=== PATIENT | male | born 1935 ===

== ENCOUNTER 2023-05-17 15:48 | Inpatient (IN) | payer MEDICARE, OTHER ==
[~2023-05-17] VITALS: Ht 177.8 cm; Wt 85.4 kg
[2023-05-17] MEDS ORDERED: diphenhydrAMINE 25 MG TABLET PO PRN (16:30)
[2023-05-17] MEDS ORDERED: ONDANSETRON INJECTION 4 MG/2 ML (SDV) IV PRN (16:30)
[2023-05-17] MEDS ORDERED: MELATONIN 3 MG TABLET PO PRN (16:30)
[2023-05-17] MEDS ORDERED: BISACODYL 10 MG SUPPOSITORY PR PRN (16:30)
[2023-05-17] MEDS ORDERED: HYDROmorphone INJECTION 2 MG/ML VIAL IV PRN (16:30)
[2023-05-17] MEDS ORDERED: ANTACID SUSPENSION 30 ML UDC PO PRN (16:30)
[2023-05-17] MEDS ORDERED: MILK OF MAGNESIA 400 MG/5 ML 30 ML UDC PO PRN (16:30)
[2023-05-17] MEDS ORDERED: diphenhydrAMINE INJ 50 MG/ML VIAL IVP PRN (16:30)
[2023-05-17] MEDS ORDERED: LACTULOSE SYRUP 10GM/15ML 30ML UDC PO PRN (16:30)
[2023-05-17] MEDS ORDERED: NS IV 500 ML 500 ML IV PRN (16:30)
[2023-05-17] MEDS ORDERED: ONDANSETRON 4 MG ORAL DISSOLVE TABLET PO PRN (16:30)
[2023-05-17] MEDS ORDERED: CALCIUM CARBONATE 500 MG CHEW TABLET PO PRN (16:30)
[2023-05-17] MEDS ORDERED: ACETAMINOPHEN 325 MG TABLET PO PRN (16:30)
--- OUTSIDE RECORDS SUMMARY | 2023-05-17 18:00 | XMS REPORT | Summary of Care ---
Author Author [facility] Address Unknown Phone Unavailable Care Team Providers Care Ad Clerk Name Role Phone Obie Oscar MD PCP [phone] Encounter Details Date Type Department Care Team Description 04/26/2023 1:45 PM CDT - 04/26/2023 11:59 PM CDT Hospital Encounter SEKS Pre Admission Testing [address] [phone] Lg Hammer MD [address] [place] [address] [place] [phone] Arrived Discharge Disposition: Home or Self Care Allergies No known active allergiesdocumented as of this encounter (statuses as of 04/27/2023) Medications Medication Sig Dispensed Refills Start Date End Date Status diclofenac sodium (VOLTAREN) 75 mg Tablet, Delayed Release (E.C.) 75 mg 1 time daily as needed for Pain. 0 01/01/2023 Active folic acid (FOLVITE) 1 mg tablet Take 1 Tablet by mouth daily. 0 05/16/2021 Active metoprolol tartrate (LOPRESSOR) 50 mg tablet TAKE 1 & 1/2 TABLETS BY MOUTH TWO TIMES A DAY 0 02/22/2023 Active lutein 40 mg Capsule Take 40 mg by mouth daily. 0 03/30/2021 Active acetaminophen (TYLENOL) 500 mg tablet Take 1,000 mg by mouth every 6 hours as needed for Pain. 0 08/14/2022 Active albuterol sulfate HFA 90 mcg/actuation aerosol inhaler Take 2 Puffs by inhalation. 0 10/26/2022 Active apixaban (ELIQUIS) 5 mg tablet Take 5 mg by mouth 2 times daily. 0 03/27/2023 Active umeclidinium-vilante roL (Anoro Ellipta) 62.5-25 mcg/actuation Disk with Device Take 1 Puff by inhalation daily. 0 02/22/2023 Active mupirocin (BACTROBAN) 2 % Ointment Apply with q-tip inside both sides of the nose twice a day for the seven days leading up to surgery. 22 Gram 0 04/17/2023 Active documented as of this encounter (statuses as of 04/27/2023) Active Problems No known active problems documented as of this encounter (statuses as of 04/27/2023) Social History Tobacco Use Types Packs/Day Years Used Date Smoking Tobacco: Never Smokeless Tobacco: Never Tobacco Cessation:Counseling Given: Not Answered Alcohol Use Standard Drinks/Week Comments Yes 4 (1 standard drink = 0.6 oz pur e alcohol) daily Sex and Gender Information Value Date Recorded Sex Assigned at Not on file Gender Identity Not on file Sexual Orientation Not on file documented as of this encounter Last Filed Vital Signs Vital Sign Reading Time Taken Comments Blood Pressure 98/47 04/26/2023 2:43 PM CDT Pulse 68 04/26/2023 2:43 PM CDT Temperature 36.4 C (97.5 F) 04/26/2023 2:43 PM C DT Respiratory Rate 16 04/26/2023 2:43 PM CDT Oxygen Saturation 99% 04/26/2023 2:43 PM CDT Inhaled Oxygen Concentration - - Weight 82.6 kg (182 lb) 04/26/2023 2:43 PM CDT Height 177.8 cm (5' 10") 04/26/2023 2:43 PM CDT Body Mass Index 26.11 04/26/2023 2:43 PM CDT documented in this encounter Discharge Instructions * Discharge Instructions* Jyoti Hernandez LPN - 04/26/2023 2:38 PM CDT THINGS TO REMEMBER ABOUT YOUR SURGERY ARRIVAL INSTRUCTIONS: [x] Scheduling will call with your arrival time a few days prior to surgery. [x] Enter through the Main Entrance on 05/17/23. SKIN PREP: Do not shave your surgical site at least five days before surgery. The morning and the night before surgery take a shower using antimicrobial soap (Hibiclens), after your shower dry completely, clean your surgical site with a Chloraprep swab after the evening shower, let it air dry. The morning of surgery take a shower and dry completely, clean your surgical site with the second Chloraprep swab and let it air dry. Do not wash the Chloraprep solution from your skin. Take extra precautions in caring for your skin in the time leading up to your surgery. Cuts, scrapes, biswas and broken skin near your surgical site could lead to the cancellation of your procedure. DIET/FLUID INSTRUCTIONS: [x] Nothing to eat or drink after midnight. EXCEPT TO DRINK THE ENSURE PROVIDED TO YOU AT YOUR PREADMISSION APPOINTMENT 3 HOURS PRIOR TO SURGERY TIME. (not given to diabetic patients) [x] No Alcohol 24 hours prior to surgery. FAILURE TO FOLLOW COULD MEAN CANCELLATION. ON THE DAY OF SURGERY: You will be asked to arrive 1.5-2 hours prior to your scheduled surgery time. You will change into a hospital gown and your belongings will be placed in a bag and locked in a locker, your armenta will be pinned on your hospital bed and stay with you until you are taken to your room. Once in Pre-Op, a nurse will start your IV and anesthesia will review your medical history. Prior to surgery, the surgeon will be able to answer any additional questions or concerns. You may have a visitor stay overnight in your room. Bring comfortable and loose fitting clothes or pajamas so the nursing staff can easily view your surgical site, if allowed you will be able to wear your own clothes and will be assisted with dressingif needed. Bring your own personal care items (toothbrush, toothpaste, etc.) DISCHARGE [x] Someone must be available on your day of discharge to take you home and be of assistance as needed (please arrange this prior to admission) MEDICATIONS Stop all over the counter vitamins/herbal supplements and CBD products 2 weeks prior to surgery. Stop any NSAID'S (ie: aspirin, aleve, ibuprofen, advil, diclofenac, meloxicam, etc..) 2 weeks priorto surgery. Stop Eliquis as directed by your senior planning manager. Start Mupirocin 7 days prior to surgery on 05/10/23. Tylenol is okay to take up until the night before surgery. The morning of surgery take Metoprolol with a small sip of water. CONTINUE ALL OTHER PRESCRIPTION MEDICATIONS DIRECTED UP UNTIL THE NIGHT BEFORE SURGERY. THE DAY OF SURGERY BRING: [x] Walker (no handbrakes, no seat) [x] Inhalers [x] Ileostomy supplies DO NOT BRING ANY HOME MEDICATIONS/VITAMINS OR PAIN MEDICATIONS WITH YOU ON THE DAY OF SURGERY. IF YOU HAVE QUESTIONS: Call Jyoti at [phone] from 8:00 a.m. to 5:00 p.m. Sunday through Sunday or email at [email or web address] documented in this encounter Plan of Treatment Upcoming Encounters Date Type Department Care Team Description 05/17/2023 2:30 PM CDT Hospital Encounter [facility] Main Operating Room [address] [place] [phone] Lg Hammer MD [address] [place] [phone] Avascular necrosis 05/17/2023 2:30 PM CDT - 05/17/2023 4:00 PM CDT Surgery [facility] Main Operating Room [address] [place] [phone] Lg Hammer MD [address] [place] [phone] HIP ARTHROPLASTY TOTAL ANTERIOR APPROACH - MDM, INSIGNIA Scheduled Procedures Name Priority Associated Diagnoses Date/Ti me HIP ARTHROPLASTY TOTAL ANTER IOR APPROACH Avascular necrosis 05/17/2023 2:30 PM CDT Health Maintenance Due Date Last Done Comments DTAP/TDAP/TD VACCINES (1 - Tdap) 1954 ZOSTER VACCINE (1 of 2) 1985 COVID-19 Vaccine (3 - Modern a series) 12/14/2020 10/19/2020, 09/17/2020 [place] Preventative Visit/Annual Wellness Visit 07/23/2022 INFLUENZA VACCINE (#1) 2023 2, 05/30/2021, 04/14/2020, Additional history exists PNEUMOCOCCAL VACCINE 65+ YEARS Completed 06/25/2018 , 05/01/2017 documented as of this encounter Procedures Procedure Name Priority Date/Time Associated Diagnosis Comments CBC WITH DIFFERENTIAL Routine 04/26/2023 2:10 PM CDT Fatigue, unspecified type PTT Routine 04/26/2023 2:10 PM CDT Pain of right lower extremity PROTIME-INR Routine 04/26/2023 2:10 PM CDT Pain of right lower extremity TYPE AND SCREEN Routine 04/26/2023 2:10 PM CDT Encounter for blood typing COMPREHENSIVE METABOLIC PANEL Routine 04/26/2023 2:10 PM CDT Fatigue, unspecified type documented in this encounter Results * TYPE AND SCREEN (04/26/2023 2:10 PM CDT) ABO GROUP A 04/26/2023 6:17 PM CDT [facility] [place] RH (D) TYPE Positive 04/26/2023 6:[address] [facility] [place] ANTIBODY SCREEN Negative 04/26/2023 6:[address] [facility] [place] Blood Venipuncture / Unknown 04/26/2023 2:10 PM CDT 04/26/2023 2:10 PM CDT Lg Hammer MD BLOOD BANK OR DERABLES [facility] [place] CLIA # [id number] [address] [place] [address] * (ABNORMAL) PTT (04/26/2023 2:10 PM CDT) PTT 36.7(H) 25.0 - 35.0 seconds 04/26/2023 5:[address] [facility] [place] Blood Venipuncture / Unknown 04/26/2023 2:10 PM CDT 04/26/2023 2:10 PM CDT Narrative [facility] [place] - 04/26/2023 5:55 PM CDT PTT Therapeutic range 68 - 103 sec Lg Hammer MD HEMATOLOGY OR DERABLES Performing Organization Address [facility]/ZIP Co de Phone Number [facility] [place] CLIA # [id number] [address] [place] [address] * (ABNORMAL) PROTIME-INR (04/26/2023 2:10 PM CDT) PROTIME 74.9(H) 11.8 - 14.6 Seconds 04/26/2023 5:[address] [facility] [place] INR 9.1(HH) 0.9 - 1.2 04/26/2023 5:[address] [facility] [place] Blood Venipuncture / Unknown 04/26/2023 2:10 PM CDT 04/26/2023 2:10 PM CDT Narrative [facility] [place] - 04/26/2023 5:55 PM CDT Therapeutic range: 2.0 - 3.5 Lg Hammer MD HEMATOLOGY OR DERABLES Performing Organization Address City/[facility]/ZIP Co de Phone Number [facility] [place] CLIA # [id number] [address] [place] [address] * (ABNORMAL) COMPREHENSIVE METABOLIC PANEL (04/26/2023 2:10 PM CDT) SODIUM 134(L) 136 - 145 mmol/L 04/26/2023 5:[address] [facility] [place] POTASSIUM 4.8 3.5 - 5.1 mmol/L 04/26/2023 5:[address] [facility] [place] CHLORIDE 105 98 - 107 mmol/L 04/26/2023 5:[address] [facility] [place] CO2 21(L) 22 - 29 mmol/L 04/26/2023 5:[address] [facility] [place] CALCIUM 9.0 8.8 - 10.2 mg/dL 04/26/2023 5:04 PM [facility] [place] BUN 16 8 - 23 mg/dL 04/26/2023 5:04 PM [facility] [place] CREATININE 1.15 0.67 - 1.17 mg/dL 04/26/2023 5:04 PM T [facility] [place] Comment:The GFR result is no t clinically significant on patients <18 or >70 years of age. GLUCOSE 102(H) 74 - 99 mg/dL 04/26/2023 5:04 PM [facility] [place] TOTAL PROTEIN 6.0(L) 6.4 - 8.3 g/dL 04/26/2023 5:04 PM [facility] [place] ALBUMIN 3.6(L) 4.0 - 4.9 g/dL 04/26/2023 5:04 PM [facility] [place] BILIRUBIN TOTAL 0.7 <=1.2 mg/dL 04/26/2023 5:04 PM [facility] [place] ALKALINE PHOSPHATASE 83 40 - 129 U/L 04/26/2023 5:04 PM [facility] [place] AST 19 0 - 40 U/L 04/26/2023 5:04 PM [facility] [place] ALT 16 0 - 41 U/L 04/26/2023 5:04 PM [facility] [place] GFR >60 mL/min/1.7 3 sq meter 04/26/2023 5:04 PM [facility] [place] Comment:eGFR calculated with 2020 CKD-EPI equation. Vegetarian diet, extremely high or low muscle mass, and may affect results. Cystatin C with Glomerular Filtration Rate is a suitable alternative for these patients. ANION GAP 8 4 - 13 mmol/L 04/26/2023 5:04 PM [facility] [place] Blood Venipuncture / Unknown 04/26/2023 2:10 PM CDT 04/26/2023 2:10 PM CDT Lg Hammer MD CHEMISTRY ORD ERABLES [facility] [place] CLIA # [id number] [address] [place] [address] ROSELIA Butt [id number] * (ABNORMAL) CBC WITH DIFFERENTIAL (04/26/2023 2:10 PM CDT) WBC 9.4 4.0 - 11.0 K/uL 04/26/2023 4:47 PM CDT [facility] [place] RBC 3.19(L) 4.70 - 6.00 M/uL 04/26/2023 4:47 PM CDT [facility] [place] HEMOGLOBIN 11.2(L) 13.5 - 18.0 g/dL 04/26/2023 4:47 PM CDT [facility] [place] HEMATOCRIT 34.0(L) 42.0 - 52.0 % 04/26/2023 4:47 PM CDT [facility] [place] MCV 106.6(H) 78.0 - 100.0 fL 04/26/2023 4:47 PM CDT [facility] [place] MCH 35.1(H) 27.0 - 34.0 pg 04/26/2023 4:47 PM CDT [facility] [place] MCHC 32.9 31.0 - 37.0 g/dL 04/26/2023 4:47 PM CDT [facility] [place] RDW 14.4 12.0 - 15.0 % 04/26/2023 4:47 PM CDT [facility] [place] RDW-STDEV 56.1(H) 37.1 - 48.7 fL 04/26/2023 4:47 PM CDT [facility] [place] PLATELETS 220 150 - 450 K/uL 04/26/2023 4:47 PM CDT [facility] [place] MPV 9.4 9.3 - 12.4 fL 04/26/2023 4:47 PM CDT [facility] [place] NEUTROPHILS 81(H) 31 - 76 % 04/26/2023 4:47 PM CDT [facility] [place] LYMPHOCYTES 9(L) 24 - 44 % 04/26/2023 4:47 PM CDT [facility] [place] MONOCYTES 9 2 - 11 % 04/26/2023 4:47 PM CDT [facility] [place] EOSINOPHILS 1 0 - 6 % 04/26/2023 4:47 PM CDT [facility] [place] BASOPHILS 1 0 - 2 % 04/26/2023 4:47 PM CDT [facility] [place] IMMATURE GRANULOCYTES 1 0 - 2 % 04/26/2023 4:47 PM CDT [facility] [place] NEUTROPHIL ABSOLUTE 7.56 1.80 - 7.70 K/uL 04/26/2023 4:47 PM CDT [facility] [place] LYMPHOCYTE ABSOLUTE 0.81(L) 1.00 - 4.80 K/uL 04/26/2023 4:47 PM CDT [facility] [place] MONOCYTE ABSOLUTE 0.80 0.10 - 1.30 K/uL 04/26/2023 4:47 PM CDT [facility] [place] EOSINOPHIL ABSOLUTE 0.08 0.00 - 0.70 K/uL 04/26/2023 4:47 PM CDT [facility] [place] BASOPHILS ABSOLUTE 0.06 0.00 - 0.20 K/uL 04/26/2023 4:47 PM CDT [facility] [place] IMMATURE GRANULOCYTES ABSOLUTE 0.06 0.00 - 0.10 K/uL 04/26/2023 4:47 PM CDT [facility] [place] Blood Venipuncture / Unknown 04/26/2023 2:10 PM CDT 04/26/2023 2:10 PM CDT Lg Hammer MD HEMATOLOGY OR DERABLES [facility] [place] CLIA # [id number] [facility] ROSELIA Ding [address] documented in this encounter Visit Diagnoses Diagnosis Fatigue, unspecified type Pain of right lower extremity Encounter for blood typing Avascular necrosis Aseptic necrosis of bone, site unspecified documented in this encounter Care Teams Ad Clerk Relationship Specialty Start Date End Date Obie Oscar MD [address] [place] [phone] PCP - General 11/06/16 documented as of this encounter
--- OUTSIDE RECORDS SUMMARY | 2023-05-17 18:00 | XMS REPORT | Encounter Summary ---
Author Author [facility] Organization [facility] Address Unknown Phone Unavailable Care Team Providers Care Aws Consultant Name Role Phone Milo Francis MD PCP [phone] Encounter Details Date Type Department Care Team Description 03/27/2023 Travel Social History Tobacco Use Types Packs/Day Years Used Date Smoking Tobacco: Former Smokeless Tobacco: Never Comments:Quit in 1987 Alcohol Use Standard Drinks/Week Comments Yes 0 (1 standard drink = 0.6 oz pur e alcohol) Six pack-per day Sex and Gender Information Value Date Recorded Sex Assigned at Not on file Gender Identity Not on file Sexual Orientation Not on file Job Start Date Occupation Industry Not on file Not on file Not on file documented as of this encounter Plan of Treatment Upcoming Encounters Date Type Department Care Team Description 05/22/2023 10:30 AM CDT Office Visit [facility] [address], [address] [phone] Gracy Reeves NP [address] [address] 09/25/2023 3:00 PM SHIPPING WEIGHER Office Visit [facility] [address], [address] [phone] Glo Watson APRN-LAN [address] [place] [address] documented as of this encounter Visit Diagnoses Not on filedocumented in this encounter Care Teams Aws Consultant Relationship Specialty Start Date End Date Milo Francis MD [address] [place] [address] PCP - General Family Medicine 03/27/23 documented as of this encounter
--- OUTSIDE RECORDS SUMMARY | 2023-05-17 18:00 | XMS REPORT | Summary of Care ---
Author Author [facility] Address Unknown Phone Unavailable Care Team Providers Care Retort Furnace Operator Name Role Phone Obie Oscar MD PCP [phone] Reason for Referral * CT Scan (Routine) - Closed Specialty Diagnoses / Procedures Referred By Contac t Referred To Contact Radiology Diagnoses AVN (avascular necrosis of bone) Procedures CT HIP WO CONTRAST RIGHT Lg Hammer MD [address] [place] [address] [facility] [address] [address] Referral ID Status Reason Start Date Expiration Date V isits Requested Visits Authorized [id number] Closed SEKS to Schedule 05/14/2023 06/13/2024 1 1 Reason for Visit * CT Scan (Routine) - Closed Specialty Diagnoses / Procedures Referred By Contac t Referred To Contact Radiology Diagnoses AVN (avascular necrosis of bone) Procedures CT HIP WO CONTRAST RIGHT Lg Hammer MD [address] [place] [address] [facility] [address] [address] Referral ID Status Reason Start Date Expiration Date V isits Requested Visits Authorized [id number] Closed SEKS to Schedule 05/14/2023 06/13/2024 1 1 Encounter Details Date Type Department Care Team Description 05/15/2023 2:30 PM CDT - 05/15/2023 11:59 PM CDT Hospital Encounter [facility] CT Scan [address] [place] [phone] Lg Hammer MD [address] [place] [phone] Arrived Discharge Disposition: Home or Self Care Allergies No known active allergiesdocumented as of this encounter (statuses as of 05/16/2023) Medications Medication Sig Dispensed Refills Start Date [...] as of this encounter (statuses as of 05/16/2023) Active Problems No known active problems documented as of this encounter (statuses as of 05/16/2023) Social History Tobacco Use Types Packs/Day Years Used Date Smoking Tobacco: Never Smokeless Tobacco: Never Alcohol Use Standard Drinks/Week Comments Yes 4 (1 standard drink = 0.6 oz pur e alcohol) daily Sex and Gender Information Value Date Recorded Sex Assigned at Not on file Gender Identity Not on file Sexual Orientation Not on file documented as of this encounter Plan of Treatment Upcoming Encounters Date Type Department Care Team Description 05/31/2023 9:30 AM PSYCH RN Office Visit [facility] [place] [address] [place] [address] [address] [place] [phone] Pending Results Name Type Priority Associated Diagnoses Date /Time CT HIP WO CONTRAST RIGHT Imaging Routine AVN (avascular necrosis of bone) 05/15/2023 3:20 PM CDT Scheduled Orders Name Type Priority Associated Diagnoses Orde r Schedule CT HIP WO CONTRAST RIGHT Imaging Routine AVN (avascular necrosis of bone) Added to HDF configuration to grandchildren will have ORD item [id number] populate with time. for 1 Occurrences starting 05/15/2023 until 05/15/2023 Scheduled Procedures Name Priority Associated Diagnoses Date/Ti me HIP ARTHROPLASTY TOTAL ANTER IOR APPROACH Avascular necrosis 05/16/2023 8:00 AM CDT Health Maintenance Due Date Last Done Comments DTAP/TDAP/TD VACCINES (1 - Tdap) 1954 ZOSTER VACCINE (1 of 2) 1985 COVID-19 Vaccine (3 - Modern a series) 12/14/2020 10/19/2020, 09/17/2020 [place] Preventative Visit/Annual Wellness Visit 07/23/2022 PNEUMOCOCCAL VACCINE 65+ YEARS Completed 06/25/2018 , 05/01/2017 INFLUENZA VACCINE Completed 04/27/2023, , 05/30/2021, Additional history exists documented as of this encounter Visit Diagnoses Diagnosis AVN (avascular necrosis of bone) Aseptic necrosis of bone, site unspecified documented in this encounter Care Teams Retort Furnace Operator Relationship Specialty Start Date End Date Obie Oscar MD [address] [place] [phone] PCP - General 11/06/16 documented as of this encounter
--- OUTSIDE RECORDS SUMMARY | 2023-05-17 18:00 | XMS REPORT | Encounter Summary ---
Author Author [employer] Organization [facility] Address Unknown Phone Unavailable Care Team Providers Care Lead Clinical Research Coordinator Name Role Phone Milo Francis MD PCP [phone] Reason for Visit * Cardiac Procedures (Routine) - Closed Specialty Diagnoses / Procedures Referred By Contac t Referred To Contact Cardiology Diagnoses Carotid artery disease, unspecified laterality, unspecified type (HCC) Procedures Ultrasound Doppler Carotid Bilateral Rod Bueno MD [address] [place] [address] [facility] [address] [place] [phone] Referral ID Status Reason Start Date Expiration Date Visits Re quested Visits Authorized [id number] Closed 03/27/2023 03/21/2024 1 1 Encounter Details Date Type Department Care Team Description 03/29/2023 3:00 PM CDT Ancillary Procedure [facility] Non-Invasive Cardiology [address] [place] [phone] Carotid artery disease, unspecified laterality, unspecified type (HCC) Social History Tobacco Use Types Packs/Day Years [...] Description 05/22/2023 10:30 AM CDT Office Visit [facility] Cardiology [address], [address] [place] [phone] Gracy Reeves NP [address] [place] [address] 09/25/2023 3:00 PM CODING COMPLIANCE AUDITOR Office Visit [facility] Cardiology [address], [address] [place] [phone] Glo Watson, DATA CENTER TECHNICIAN-PIT TANNER [address] [place] [address] documented as of this encounter Procedures Procedure Name Priority Date/Time Associated Diagnosis Comments US DOPPLER CAROTID EXTRACRANIAL Routine 03/29/2023 3:35 PM CDT Carotid artery disease, unspecified laterality, unspecified type (HCC) documented in this encounter Results * Ultrasound Doppler Carotid Bilateral (03/29/2023 3:35 PM CDT) Anatomical Region Laterality Modality Ultrasound Impressions 03/31/2023 10:07 AM CDT No evidence of hemodynamically significant stenosis noted in the right or left ICA. Mild plaque noted in the right and left bulb, ECA and proximal ICA. FOLLOW-UP IMAGING RECOMMENDATION: Repeat study in 2 years Narrative 03/31/2023 10:07 AM CDT Table formatting from the original result was not included. Images from the original result were not included. Date of Exam:03/29/23 MR#: [id number] Patient: Jonathan Restrepo Referring Physician: Rod Bueno Date of : 1935 Technologist: Ermelinda Boo [facility], RVT BILATERAL CAROTID DUPLEX ULTRASOUND B-mode imaging, pulse wave Doppler, and color Doppler of the carotid arteries, vertebral arteries, and subclavian arteries INDICATION: stenosis PREVIOUS EXAM: 06-05-19 DOPPLER MEASUREMENTS RIGHT PSV cm/sec EDV cm/sec LEFT PSV cm/sec EDV cm/sec CCA Prox 121 10 CCA Prox 86 10 CCA Dist 70 6 CCA Dist 66 12 ICA Prox 48 10 ICA Prox 58 15 ICA Dist 67 12 ICA Dist 90 22 ECA 90 ECA 105 Subclavian A 205 Subclavian A 126 Vertebral A Poor vis Vertebral A 71 Vertebral Flow Poor VIS Vertebral Flow antegrade ICA/CCA Ratio 0.55 ICA/CCA Ratio 1.04 FINDINGS RIGHT: Intimal thickening noted in the right CCA. Mild plaque noted in the right bulb, ECA and proximal ICA. Antegrade flow noted in the right vertebral artery. Triphasic waveforms noted in the right subclavian artery. LEFT: Intimal thickening noted in the left CCA. Mild plaque noted in the left bulb, ECA and proximal ICA. Antegrade flow noted in the left vertebral artery. Triphasic waveforms noted in the left subclavian artery. Rod Bueno MD CV VASCULAR PROCEDUR ES documented in this encounter Visit Diagnoses Diagnosis Carotid artery disease, unspecified laterality, unspecified type (HCC) documented in this encounter Care Teams Lead Clinical Research Coordinator Relationship Specialty Start Date End Date Milo Francis MD [address] [place] [address] PCP - General Family Medicine 03/27/23 documented as of this encounter
--- OUTSIDE RECORDS SUMMARY | 2023-05-17 18:00 | XMS REPORT | Encounter Summary ---
Author Author [facility] Organization [facility] Address Unknown Phone Unavailable Care Team Providers Care Grinding Room Supervisor Name Role Phone Milo Francis MD PCP [phone] Encounter Details Date Type Department Care Team Description 03/29/2023 Travel Social History Tobacco Use Types Packs/Day [...] Description 05/22/2023 10:30 AM CDT Office Visit [facility] Cardiology [address], [address] [phone] Gracy Reeves NP [address] [address] 09/25/2023 3:00 PM OUTCOMES MANAGER Office Visit [facility] Cardiology [address], [address] [phone] Glo Watson APRN-LAN [address] [place] [address] documented as of this encounter Visit Diagnoses Not on filedocumented in this encounter Care Teams Grinding Room Supervisor Relationship Specialty Start Date End Date Milo Francis MD [address] [place] [address] PCP - General Family Medicine 03/27/23 documented as of this encounter
--- OUTSIDE RECORDS SUMMARY | 2023-05-17 18:00 | XMS REPORT | Summary of Care ---
Author Author [facility] Address Unknown Phone Unavailable Care Team Providers Care Outsole Cementer Name Role Phone Obie Oscar MD PCP [phone] Encounter Details Date Type Department Care Team Description 04/26/2023 2:02 PM CDT - 04/26/2023 11:59 PM CDT Hospital Encounter [facility] Radiology [address] [place] [phone] Lg Hammer MD [address] [place] [phone] Arrived Discharge Disposition: Home or Self [...] Description 05/17/2023 2:30 PM CDT Hospital Encounter [facility] Main Operating Room [address] [phone] gL Hammer MD [address] [place] [phone] Avascular necrosis 05/17/2023 2:30 PM CDT - 05/17/2023 4:00 PM CDT Surgery [facility] Main Operating Room [address] [phone] Lg Hammer MD [address] [place] [phone] HIP ARTHROPLASTY TOTAL ANTERIOR APPROACH - MDM, INSIGNIA Scheduled Procedures Name Priority Associated Diagnoses Date/Ti me HIP ARTHROPLASTY TOTAL ANTER IOR APPROACH Avascular necrosis 05/17/2023 2:30 PM CDT Health Maintenance Due Date Last Done Comments DTAP/TDAP/TD VACCINES (1 - Tdap) 1954 ZOSTER VACCINE (1 of 2) 1985 COVID-19 Vaccine (3 - Modern a series) 12/14/2020 10/19/2020, 09/17/2020 Medicare Advantage (MD) Preventative Visit/Annual Wellness Visit 07/23/2022 INFLUENZA VACCINE (#1) 2023 2, 05/30/2021, 04/14/2020, Additional history exists PNEUMOCOCCAL VACCINE 65+ YEARS Completed 06/25/2018 , 05/01/2017 documented as of this encounter Procedures Procedure Name Priority Date/Time Associated Diagnosis Comments XR CHEST PA AND LATERAL 2 VW Routine 04/26/2023 2:59 PM CDT Pain of right lower extremity documented in this encounter Results * XR CHEST PA AND LATERAL 2 VW (04/26/2023 2:59 PM CDT) Anatomical Region Laterality Modality Chest Computed Radiogr aphy 04/26/2023 3:2 2 PM CDT Narrative 04/26/2023 3:22 PM CDT CHEST, 2 views CLINICAL DATA: Preoperative evaluation. FINDINGS: Prominent interstitial markings diffusely, likely chronic interstitial lung disease. The heart size is normal. The mediastinum and dimitri are unremarkable. No consolidations or effusions are present. IMPRESSION: Chronic interstitial lung disease. No acute cardiopulmonary process. Electronically Signed By: Jessica North DO, Signed On: 04/26/2023 3:22 PM, [id number] Procedure Note Jessica North DO - 04/26/2023 CHEST, 2 views CLINICAL DATA: Preoperative evaluation. FINDINGS: Prominent interstitial markings diffusely, likely chronicinterstitial lung disease. The heart size is normal. The mediastinum and dimitri are unremarkable. No consolidations or effusions are present. IMPRESSION: Chronic interstitial lung disease. No acute cardiopulmonary process. Electronically Signed By: Jessica North DO, Signed On: 04/26/2023 3:22PM, [id number] Lg Hammer MD DIAGNOSTIC IM AGING ORDERABLES documented in this encounter Visit Diagnoses Diagnosis Pain of right lower extremity Avascular necrosis Aseptic necrosis of bone, site unspecified documented in this encounter Care Teams Outsole Cementer Relationship Specialty Start Date End Date Obie Oscar MD [address] [place] [phone] PCP - General 11/06/16 documented as of this encounter
--- OUTSIDE RECORDS SUMMARY | 2023-05-17 18:00 | XMS REPORT | Encounter Summary ---
Author Author [employer] Organization [employer] [facility] Address Unknown Phone Unavailable Care Team Providers Care Coping Machine Operator Name Role Phone Milo Francis MD PCP [phone] Reason for Visit * Cardiac Procedures (Routine) - Closed Specialty Diagnoses / Procedures Referred By Contac t Referred To Contact Cardiology Diagnoses Nonrheumatic aortic (valve) insufficiency Shortness of breath Procedures Transthoracic Echo (TTE) Complete TRANSTHORACIC ECHO (TTE) COMPLETE TRANSTHORACIC ECHO (TTE) COMPLETE W/ DOPPLER TRANSTHORACIC ECHO (TTE) COMPLETE W/ CONTRAST TRANSTHORACIC ECHO (TTE) COMPLETE NO DOPPLER NO COLOR Rod Bueno MD [address] [place] [address] [facility] [address] [place] [phone] Referral ID Status Reason Start Date Expiration Date Visits Re quested Visits Authorized [id number] Closed 03/27/2023 03/21/2024 1 1 Encounter Details Date Type Department Care Team Description 03/29/2023 2:00 PM CDT Ancillary Procedure [facility] Non-Invasive Cardiology [address] [place] [phone] Nonrheumatic aortic (valve) insufficiency; Shortness of breath Social History Tobacco Use Types Packs/Day Years [...] Description 05/22/2023 10:30 AM CDT Office Visit [facility] Cardiology [address], [address] [place] [phone] Gracy Reeves NP [address] [place], [place] [phone] 09/25/2023 3:00 PM ELEVATORS INSPECTOR Office Visit [facility] Cardiology [address], [address] [place] [phone] Glo Watson, CLEAN IN PLACES OPERATOR-RN OTOLARYNGOLOGY [address] [place], [place] [phone] documented as of this encounter Procedures Procedure Name Priority Date/Time Associated Diagnosis Comments TRANSTHORACIC ECHO (TTE) COMPLETE W/ DOPPLER AND COLOR Routine 03/29/2023 3:35 PM CDT Nonrheumatic aortic (valve) insufficiency Shortness of breath documented in this encounter Results * TRANSTHORACIC ECHO (TTE) COMPLETE W/ DOPPLER AND COLOR (03/29/2023 3:35 PM CDT) Anatomical Region Laterality Modality Ultrasound Narrative 03/31/2023 10:06 AM CDT Table formatting from the original result was not included. Images from the original result were not included. Name: Jonathan Restrepo Date of study: 03/29/23 Date of : 1935 Medical Record: [id number] Room Number: 2 Accession Number: [id number] Ht: 5'6 Wt: 182 BSA: 1.93 Asphalt Spreader Operator: Ermelinda Boo RD, RVT BP: 126/68 HR: 72 Ordering Physician: Rod Bueno MD Study Performed: Transthoracic Echocardiogram Indication/History: AI Procedure: Complete two dimensional transthoracic echocardiogram with spectral doppler and color flow evaluation. Study quality is technically difficult. Findings: Left ventricle: Left ventricular chamber size is normal. There is no evidence of left ventricular hypertrophy. The left ventricular function is normal. Estimated ejection fraction 55-60%. No evidence of regional wall motion abnormalities. Diastolic function is normal. Right ventricle: Right ventricular chamber size is normal. Right ventricular function is normal The right ventricular wall thickness is normal. Atria: Left atrial size is normal. Left atrial volume is normal. Right atrial size is normal. Aortic root: Aortic root is normal in size. Ascending aorta is normal in size. Aortic valve: The aortic valve is trileaflet Aortic stenosis is absent. Mild to moderate (1-2+) aortic regurgitation. No MAGGIE obtained due to poor color Doppler angles and poor patient positioning. Mitral valve: The mitral valve is structurally normal. Mitral stenosis is absent. Moderate to moderately severe (2-3+) mitral regurgitation. Tricuspid valve: Morphologically normal tricuspid valve. Tricuspid stenosis is absent. Moderate to moderately severe (2-3+) tricuspid regurgitation. Pulmonic valve: Morphologically normal pulmonic valve. Pulmonic stenosis is absent. Moderate (2+) pulmonic regurgitation. Pulmonary arterial systolic pressure: Estimated pulmonary arterial systolic pressure is 58.6 mmHg. Pulmonary artery systolic pressures are moderately increased. Inferior vena cava: The inferior vena cava is not well visualized. Mass: No intracardiac mass or thrombus is noted. Effusion: Pericardial effusion is not visualized.. Conclusions: Normal left ventricular systolic function with EF 60 %. 1-2+ aortic regurgitation 2-3+ mitral regurgitation 2-3+ tricuspid regurgitation 2+ pulmonic regurgitation Moderate pulmonary hypertension Comparison: Changes are seen compared to previous exam from 2020, valvular regurgitation has increased, and pulmonary hypertension is present Echo Doppler Echo Dimensions Male normal Female normal Results Aortic Valve: LV Diastolic Diameter Peak Velocity (m/sec) 1.18 (cm) 4.2 - 5.8 3.8 - 5.2 4.95 Peak Gradient (mmHg) 5.55 LV Systolic Diameter Mean Gradient (mmHg) 2.41 (cm) 2.5 - 4.0 2.2 - 3.5 4.30 Valve Area (cm2) IV Septal Thickness LVOT Peak Velocity (m/sec) (cm) 0.6 - 1.0 0.6 - 0.9 1.41 LVOTd (cm) 2.63 LV Posterior Wall Thickness AI EROA (cm2) (cm) 0.6 - 1.0 0.6 - 0.9 1.78 RV Max Short [place] Mitral Valve: (cm) 2.5 - 4.1 2.5 - 4.1 Peak Velocity (m/sec) 5.57 RV Wall Thickness E-Velocity (m/sec) (cm) 0.1 - 0.5 0.1 - 0.5 A-Velocity (m/sec) Left Atrium Deceleration Time (m/sec) A-P (cm) 3.0 - 4.0 2.7 - 3.8 5.76 Medial e I-S (cm) 3.0 - 5.5 3.0 - 5.5 6.64 Lateral e LA Volume Index (mL/m2) 16 - 34 16 - 34 E/e Right Atrium Peak Gradient (mmHg) I-S (cm) 3.0 - 5.5 3.0 - 5.5 Mean Gradient (mmHg) RA Area (cm2) P Time (msec) Aortic Root Valve Area (cm2) (cm) 3.1 - 3.7 2.7 - 3.3 3.61 MR PISA (cm) Ascending Aorta MR EROA (cm2) (cm) 2.6 - 3.4 2.3 - 3.1 Cardiac Output (Lpm) 4-8 4-8 Stroke Volume (mL) 60-100 60-100 Stroke Vol Index (mL/m2) >35 >35 Tricuspid Valve: LV EDV BP (mL) 62 - 150 46 - 106 Peak TR Velocity (m/sec) 3.49 LV ESV BP (mL) 21 - 61 14 - 42 Estimated RA Pressure (mmHg) LV Ejection Fraction (%) 52 - 72% 54 -74% 55-60 Peak PA Systolic Pressure (mmHg) LV Global Strain (%) TAPSE(cm) 1.98 Pulmonic Valve: TASV(m/sec) Peak Velocity (m/sec) RVSP 58.6 Acceleration Time (msec) Rod Bueno MD CV ECHO PROCEDURES documented in this encounter Visit Diagnoses Diagnosis Nonrheumatic aortic (valve) insufficiency Shortness of breath documented in this encounter Care Teams Coping Machine Operator Relationship Specialty Start Date End Date Milo Francis MD [address] [place] [address] PCP - General Family Medicine 03/27/23 documented as of this encounter
--- OUTSIDE RECORDS SUMMARY | 2023-05-17 18:00 | XMS REPORT | Encounter Summary ---
Author Author [facility] Organization [facility] Address Unknown Phone Unavailable Care Team Providers Care Ob/Gyn Doctor Name Role Phone Milo Francis MD PCP [phone] Encounter Details Date Type Department Care Team Description 04/17/2023 Travel Social History Tobacco Use Types Packs/Day [...] Description 05/22/2023 10:30 AM CDT Office Visit [facility] Cardiology [address], [address] [phone] Gracy Reeves NP [address] [address] 09/25/2023 3:00 PM BRANDING MACHINE OPERATOR Office Visit [facility] Cardiology [address], [address] [phone] Glo Watson APRN-LAN [address] [place] [address] documented as of this encounter Visit Diagnoses Not on filedocumented in this encounter Care Teams Ob/Gyn Doctor Relationship Specialty Start Date End Date Milo Francis MD [address] [place] [address] PCP - General Family Medicine 03/27/23 documented as of this encounter
--- OUTSIDE RECORDS SUMMARY | 2023-05-17 18:00 | XMS REPORT | Encounter Summary ---
Author Author [employer] Organization [employer] [facility] Address Unknown Phone Unavailable Care Team Providers Care Canopy Inspector Name Role Phone Milo Francis MD PCP [phone] Reason for Visit * Reason Comments Atrial Fibrillation Re-Ck EKG Encounter Details Date Type Department Care Team Description 04/17/2023 3:45 PM CDT Clinical Support [facility] Cardiology [address], [address] [phone] Persistent atrial fibrillation (HCC) (Primary Dx) Social History Tobacco Use Types Packs/Day Years Used Date Smoking Tobacco: Former Smokeless Tobacco: Never Tobacco Cessation:Counseling Given: Not Answered Comments:Quit in 1987 Alcohol Use Standard Drinks/Week [...] Sign Reading Time Taken Comments Blood Pressure 112/66 04/17/2023 3:57 PM CDT Pulse 83 04/17/2023 3:57 PM CDT Temperature - - Respiratory Rate 20 04/17/2023 3:57 PM CDT Oxygen Saturation 99% 04/17/2023 3:57 PM CDT Inhaled Oxygen Concentration - - Weight 82.6 kg (182 lb) 04/17/2023 3:57 PM CDT Height 177.8 cm (5' 10") 04/17/2023 3:57 PM CDT Body Mass Index 26.11 04/17/2023 3:57 PM CDT documented in this encounter Progress Notes * Cassy Dumas RN - 04/17/2023 3:45 PM CDTSummary: A fib Pt had a ekg done during this visit. Pt was still in a fib. Pt has not missed a dose of eliquis. Ptwill be set up for cardioversion at this time. Pt also asked about surgical clearance. Per [facility] clearance can be given. Pt was taught about the procedure and had no questions at this time. Orders entered at this time. Clearance sent to [phone] documented in this encounter Plan of Treatment Upcoming Encounters Date Type Department Care Team Description 05/22/2023 10:30 AM CDT Office Visit [facility] Cardiology [address], [address] [place] [phone] Gracy Reeves NP [address] [place] [address] 09/25/2023 3:00 PM ELECTRIC METER TESTER Office Visit [facility] Cardiology [address], [address] [place] [address] Glo Watson, BREN[employer] PAN TANK OPERATOR [address] [place] [address] documented as of this encounter Procedures Procedure Name Priority Date/Time Associated Diagnosis Comments ECG 12-LEAD Routine 04/19/2023 10:07 AM CDT Persistent atrial fibrillation (HCC) documented in this encounter Results * ECG 12 lead (04/19/2023 10:07 AM CDT) Narrative KELLY SNYDER ECG - 04/19/2023 10:07 AM CDT Atrial fibrillation -occasional ectopic ventricular beat -Right bundle branch block. ABNORMAL Rod Bueno MD ECG ORDERABLES TUL SNYDER ECG documented in this encounter Visit Diagnoses Diagnosis Persistent atrial fibrillation (HCC)- Primary documented in this encounter Care Teams Canopy Inspector Relationship Specialty Start Date End Date Milo Francis MD [address] [place] [address] PCP - General Family Medicine 03/27/23 documented as of this encounter
--- OUTSIDE RECORDS SUMMARY | 2023-05-17 18:00 | XMS REPORT | Clinical Summary ---
Author Author [facility] Address Unknown Phone Unavailable Care Team Providers Care Venetian Blind Installer Name Role Phone Mlio Francis MD PCP [phone] Allergies No known active allergies Medications Medication Sig Dispensed Refills Start Date End Date Status folic acid (FOLVITE) 1 mg tablet TAKE 1 TABLET(S) BY MOUTH DAILY 0 05/16/2021 Active lutein 40 mg capsule Take 40 mg by mouth daily. 0 03/30/2021 Active albuterol HFA (Ventolin HFA) 90 mcg/actuation inhaler Inhale 2 puffs. 0 10/26/2022 Active diclofenac (VOLTAREN) 75 mg EC tablet TAKE 1 TABLET BY MOUTH TWO TIMES A DAY NEEDED FOR ARTHRITIS PAIN 0 01/01/2023 Active umeclidinium-vilant Jose Ramon (Anoro Ellipta) 62.5-25 mcg/actuation blister with device Inhale 1 puff in the morning. 0 02/22/2023 Active acetaminophen (TYLENOL) 500 mg tablet Take 2 tablets (1,000 mg total) by mouth. 0 08/14/2022 Active metoprolol tartrate (LOPRESSOR) 50 mg tablet TAKE 1 & 1/2 TABLETS BY MOUTH TWO TIMES A DAY 0 02/22/2023 Active apixaban (ELIQUIS) 5 mg tabletIndications:P aroxysmal atrial fibrillation (HCC) Take 1 tablet (5 mg total) by mouth 2 (two) times per day. 180 tablet 3 03/27/2023 03/26/2024 Active Active Problems Problem Noted Date Diagnosed Date Carotid artery disease 03/27/2023 Paroxysmal atrial fibrillation 03/27/2023 Osteoarthritis 01/31/2021 Overview: Last Assessment & Plan: Noted. Premature ventricular contractions 08/07/2019 Other fatigue 04/17/2019 Claudication of both lower extremities 9 Localized edema 04/17/2019 Nonrheumatic tricuspid valve regurgitation 12/24 Class 1 obesity without seri ous comorbidity with body mass index (BMI) of 31.0 to 31.9 in adult 12/24/2017 Body mass index 33.0-33.9, adult 12/24/2017 Essential (primary) hypertension 12/24/2017 Nonrheumatic mitral valve regurgitation 12/25/19 18 Nonrheumatic aortic (valve) insufficiency 2017 Bilateral carotid artery stenosis 12/24/2017 Shortness of breath Encounters Date Type Department Care Team Description 04/26/2023 Clinic Scan Only Encounter [facility] [address] [place] [address] Blob, Scan Provider 04/17/2023 3:45 PM CDT Clinical Support [facility] Cardiology [address], [address] [place] [address] Persistent atrial fibrillation (HCC) (Primary Dx) 04/17/2023 Travel 03/29/2023 3:00 PM CDT Ancillary Procedure [facility] Non-Invasive Cardiology [address] [place] [address] Carotid artery disease, unspecified laterality, unspecified type (HCC) 03/29/2023 2:00 PM CDT Ancillary Procedure [facility] Non-Invasive Cardiology [address] [place] [address] [place] [address] Nonrheumatic aortic (valve) insufficiency; Shortness of breath 03/29/2023 Travel 03/27/2023 3:45 PM CDT Office Visit [facility] Cardiology [address], [address] [place] [address] Rod Bueno MD Paroxysmal atrial fibrillation (HCC) (Primary Dx); Shortness of breath; Essential (primary) hypertension; Carotid artery disease, unspecified laterality, unspecified type (HCC); Nonrheumatic aortic (valve) insufficiency 03/27/2023 Travel from Last 3 Months Social History Tobacco Use Types Packs/Day Years [...] file Not on file Not on file Last Filed Vital Signs Vital Sign Reading [...] Mass Index 26.11 04/17/2023 3:57 PM CDT Plan of Treatment Upcoming Encounters Date Type Department Care Team Description 05/22/2023 10:30 AM CDT Office Visit [facility] Cardiology [address], [address] [address] Gracy Reeves NP [address] [address] 09/25/2023 3:00 PM LAUNDRY HOUSEKEEPER Office Visit [facility] Cardiology [address], [place] [address] [place] [phone] Glo Watson, LEASING SALES CONSULTANT-CASEWORK SPECIALIST [address] [place] [address] Health Maintenance Due Date Last Done Comments MMR Vaccines (1 of 1 - Standard series) 1936 Varicella Vaccines (1 of 2 - 2-dose childhood series) 1936 Pneumococcal 65+ Yr (1 - PCV) 1941 Zoster Vaccines (1 of 2) 1985 RSV 60+ (1 - 1-dose 60+ series) 1995 Fall Risk Screening 2000 DTaP,Tdap,and Td Vaccines (1 - Tdap) 03/26/2015 03/25/2015 Medicare Wellness 06/27/2017 06/27/2016 Lipid Panel 06/03/2020 06/03/2015 Depression Screening 07/23/2022 COVID-19 Vaccine ( - season) 2023 05/11/2022, 10/19/2020, 09/17/2020 Influenza Vaccine Completed 04/27/2023, , 05/30/2021, Additional history exists HIB Vaccines Aged Out No longer eligi ble based on patient's age to complete this topic HPV Vaccines Aged Out No longer eligi ble based on patient's age to complete this topic Hepatitis A Vaccines Aged Out No long er eligible based on patient's age to complete this topic Hepatitis B Vaccines Aged Out No long er eligible based on patient's age to complete this topic IPV Vaccines Aged Out No longer eligi ble based on patient's age to complete this topic Meningococcal Vaccine Aged Out No deneen vasiliy eligible based on patient's age to complete this topic RSV Aged Out No longer eligi ble based on patient's age to complete this topic Procedures Procedure Name Priority Date/Time Associated Diagnosis Comments ECG 12-LEAD Routine 04/19/2023 10:07 AM CDT Persistent atrial fibrillation (HCC) US DOPPLER CAROTID EXTRACRANIAL Routine 03/29/2023 3:35 PM CDT Carotid artery disease, unspecified laterality, unspecified type (HCC) TRANSTHORACIC ECHO (TTE) COMPLETE W/ DOPPLER AND COLOR Routine 03/29/2023 3:35 PM CDT Nonrheumatic aortic (valve) insufficiency Shortness of breath ECG 12-LEAD Routine 03/28/2023 3:45 PM CDT Essential (primary) hypertension from Last 3 Months Results * ECG 12 lead (04/19/2023 10:07 AM CDT) Only the most recent of2 resultswithin the time period is included. Narrative [facility] ECG - 04/19/2023 10:07 AM CDT Atrial fibrillation -occasional ectopic ventricular beat -Right bundle branch block. ABNORMAL Rod Bueno MD ECG ORDERABLES [facility] ECG * Ultrasound Doppler Carotid Bilateral (03/29/2023 3:35 [...] were not included. Date of Exam:03/29/23 MR#: [id number] Patient: Jonathan Restrepo Referring Physician: Rod Bueno Date of : 1935 Technologist: Ermelinda Boo [facility], T BILATERAL CAROTID DUPLEX ULTRASOUND B-mode imaging, pulse [...] Rod Bueno MD CV VASCULAR PROCEDUR ES * TRANSTHORACIC ECHO (TTE) COMPLETE W/ DOPPLER AND COLOR (03/29/2023 3:35 PM CDT) Anatomical Region Laterality Modality Ultrasound Narrative 03/31/2023 10:06 AM CDT Table formatting from the original result was not included. Images from the original result were not included. Name: Jonathan Restrepo Date of study: 03/29/23 Date of : 1935 Medical Record: [id number] Room Number: 2 Accession Number: [id number] Ht: 5'6 Wt: 182 BSA: 1.93 Outbound Sales Professional: Ermelinda Boo RDCS, RVT BP: 126/68 HR: 72 Ordering Physician: [...] 0.6 - 0.9 1.78 RV Max Short [place] Mitral Valve: (cm) 2.5 - 4.1 2.5 [...] (msec) Rod Bueno MD CV ECHO PROCEDURES from Last 3 Months Care Teams Venetian Blind Installer Relationship Specialty Start Date End Date Milo Francis MD [address] [place] [address] PCP - General Family Medicine 03/27/23
--- OUTSIDE RECORDS SUMMARY | 2023-05-17 18:00 | XMS REPORT | Encounter Summary ---
Author Author [facility] Organization [facility] Address Unknown Phone Unavailable Care Team Providers Care Federal Mediator Name Role Phone Milo Francis MD PCP [phone] Reason for Referral * Cardiac Procedures (Routine) - Closed Specialty Diagnoses / Procedures Referred By Contac t Referred To Contact Cardiology Diagnoses Carotid artery disease, unspecified laterality, unspecified type (HCC) Procedures Ultrasound Doppler Carotid Bilateral Rod Bueno MD [address] [place] [address] [facility] [address] [place] [phone] Referral ID Status Reason Start Date Expiration Date Visits Re quested Visits Authorized [id number] Closed 03/27/2023 03/21/2024 1 1 * Cardiac Procedures (Routine) - Closed Specialty Diagnoses / Procedures Referred By Contac t Referred To Contact Cardiology Diagnoses Nonrheumatic aortic (valve) insufficiency Shortness of breath Procedures Transthoracic Echo (TTE) Complete TRANSTHORACIC ECHO (TTE) COMPLETE TRANSTHORACIC ECHO (TTE) COMPLETE W/ DOPPLER TRANSTHORACIC ECHO (TTE) COMPLETE W/ CONTRAST TRANSTHORACIC ECHO (TTE) COMPLETE NO DOPPLER NO COLOR Rod Bueno MD [address] [place] [address] [facility] [address] [place] [phone] Referral ID Status Reason Start Date Expiration Date Visits Re quested Visits Authorized [id number] Closed 03/27/2023 03/21/2024 1 1 Encounter Details Date Type Department Care Team Description 03/27/2023 3:45 PM CDT Office Visit [facility] Cardiology [address] , [facility] [address] [place] [address] Rod Bueno MD [address] [place] [address] Paroxysmal atrial fibrillation (HCC) (Primary Dx); Shortness of breath; Essential (primary) hypertension; Carotid artery disease, unspecified laterality, unspecified type (HCC); Nonrheumatic aortic (valve) insufficiency Social History Tobacco Use Types Packs/Day Years [...] Sign Reading Time Taken Comments Blood Pressure 114/56 03/27/2023 3:41 PM CDT Pulse 70 03/27/2023 3:41 PM CDT Temperature - - Respiratory Rate - - Oxygen Saturation - - Inhaled Oxygen Concentration - - Weight 82.6 kg (182 lb) 03/27/2023 3:41 PM CDT Height 167.6 cm (5' 6") 03/27/2023 3:41 PM CDT Body Mass Index 29.38 03/27/2023 3:41 PM CDT documented in this encounter Patient Instructions * Patient Instructions* Cassy Dumas RN - 03/27/2023 3:45 PM CDT Here is what is important to remember from today's visit. Testing that was ordered today: echo, ultrasound of your carotids Follow up apt: 1 months for a nurses visit Medications: Stop these medications- eliquis 2.5 mg Start these medications- eliquis 5 mg If you have any questions or concerns, please do not hesitate to reach out to us. You can call our office at or send me a message through [employer]. Have a great day!! BRIDGET Blair * Attachments The following attachments cannot be sent through Care Everywhere. * Aerobic Exercise (Malagasy) * Heart Healthy Diet (Malagasy) documented in this encounter Progress Notes * Rod Bueno MD - 03/27/2023 3:45 PM CDT Images from the original note were not included. [facility] Office Progress Note Patient: Jonathan Oquendo Annamariaperez PCP: Milo Francis MD Date: 1935 Date of Service: 03/27/2023 Allergies No Known Allergies Chief Complaint Hypertension History of Present Illness Ed returns for follow-up valuation. He was within the last month or so found by his PCP to be in atrial fibrillation. He is placed on Eliquis 2.5 twice daily. He does not note symptomatic palpitations but has been aware of increased exertional dyspnea. 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 He currently ambulates with a walker to take weight off of his hip. He has been seen by Dr. Orosco locally and is going to see Dr. Hammer in the near future. He is not having chest pain. 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 He had remote history of atrial fibs several years ago which she attributed to a Spiriva inhaler at that time. Cardiac Risk Factors [x] Hypertension [] Family h/o heart disease [] Sedentary Lifestyle [] Hyperlipidemia [] Prior h/o heart disease [x] Age (male 45+ female 55+) [] Tobacco Abuse [x] Obesity [] Menopausal [x] History of Tobacco Use [] Gout [] Other ASCVD [] Diabetes Mellitus [] Elevated hs CRP Past History Past Medical History: Diagnosis Date Arthritis Atrial fibrillation (HCC) COPD (chronic obstructive pulmonary disease) (HCC) History of echocardiogram Mild mitral regurgitation Moderate aortic insufficiency Moderate tricuspid regurgitation Right knee pain Sexual dysfunction Shortness of breath History reviewed. No pertinent surgical history. Social History Social History Tobacco Use Smoking status: Former Smokeless tobacco: Never Tobacco comments: Quit in 1987 Substance Use Topics Alcohol use: Yes Comment: Six pack-per day Drug use: Never Family History Family History Family history unknown: Yes Review of Systems Review of Systems Constitutional: Negative. HENT: Negative. Eyes: Negative. Cardiovascular: Positive for irregular heartbeat. Respiratory: Positive for shortness of breath. Endocrine: Negative. Hematologic/Lymphatic: Negative. Skin: Negative. Musculoskeletal: Positive for joint pain. Using a walker Gastrointestinal: Negative. Genitourinary: Negative. Neurological: Negative. Psychiatric/Behavioral: Negative. Allergic/Immunologic: Negative. All other systems reviewed and are negative. Medications Today Current Outpatient Medications: acetaminophen (TYLENOL) 500 mg tablet, Take 2 tablets (1,000 mg total) by mouth., Disp: , Rfl: albuterol HFA (Ventolin HFA) 90 mcg/actuation inhaler, Inhale 2 puffs., Disp: , Rfl: diclofenac (VOLTAREN) 75 mg EC tablet, TAKE 1 TABLET BY MOUTH TWO TIMES A DAY NEEDED FOR ARTHRITIS PAIN, Disp: , Rfl: folic acid (FOLVITE) 1 mg tablet, TAKE 1 TABLET(S) BY MOUTH DAILY, Disp: , Rfl: lutein 40 mg capsule, Take 40 mg by mouth daily., Disp: , Rfl: metoprolol tartrate (LOPRESSOR) 50 mg tablet, TAKE 1 & 1/2 TABLETS BY MOUTH TWO TIMES A DAY, Disp: , Rfl: umeclidinium-vilanteroL (Anoro Ellipta) 62.5-25 mcg/actuation blister with device, Inhale 1 puff in the morning., Disp: , Rfl: apixaban (ELIQUIS) 5 mg tablet, Take 1 tablet (5 mg total) by mouth 2 (two) times per day., Disp: 180 tablet, Rfl: 3 Physical Exam BP 114/56 (BP Location: Right arm, Patient Position: Sitting) | Pulse 70 | Ht 1.676 m (5' 6") | Wt 82.6 kg (182 lb) | BMI 29.38 kg/m Body mass index is 29.38 kg/m. Physical Exam Vitals and nursing note reviewed. Constitutional: Appearance: Normal appearance. He is normal weight. HENT: Nose: Nose normal. Mouth/Throat: Mouth: Mucous membranes are dry. Eyes: Pupils: Pupils are equal, round, and reactive to light. Cardiovascular: Rate and Rhythm: Normal rate. Rhythm irregular. Pulses: Normal pulses. Carotid pulses are 2+ on the right side and 2+ on the left side. Dorsalis pedis pulses are 2+ on the right side and 2+ on the left side. Heart sounds: Normal heart sounds. Pulmonary: Effort: Pulmonary effort is normal. Breath sounds: Normal breath sounds. Musculoskeletal: General: Normal range of motion. Cervical back: Normal range of motion. Skin: General: Skin is warm and dry. Neurological: General: No focal deficit present. Mental Status: He is alert and oriented to person, place, and time. Mental status is at baseline. Psychiatric: Mood and Affect: Mood normal. Behavior: Behavior normal. Thought Content: Thought content normal. Judgment: Judgment normal. Labs No results found for: "WBC", "HGB", "HCT", "MCV", "PLT" No results found for: "GLUCOSE", "CALCIUM", "NA", "K", "CO2", "CL", "BUN", "CREATININE", "ALT", "SMA", "PROT" Lab Results Component Value Date CHOL 140 06/03/2015 HDL 39 (L) 06/03/2015 LDLCALC 84 06/03/2015 TRIG 87 06/03/2015 CHOLHDL 3.6 06/03/2015 No results found for: "INR", "PTT" No results found for: "BNP" Does Jonathan Restrepo have known CAD? no Does Jonathan Restrepo have a diagnosis of heart failure? no. Does Jonathan Restrepo have a diagnosis of heart failure?no. Does Jonathan Restrepo currently use tobacco ? no. Is Jonathan Restrepo BMI < 18.5 or > 25? Yes, provided patient appropriate education. Does Jonathan Restrepo have a diagnosis of diabetes? Does the patient have a diagnosis of diabetes?: No Impression 1. Paroxysmal atrial fibrillation (HCC) Now persistent. - apixaban (ELIQUIS) 5 mg tablet; Take 1 tablet (5 mg total) by mouth 2 (two) times per day. Dispense: 180 tablet; Refill: 3 2. Shortness of breath Possibly related to above. Does have moderate COPD. - Transthoracic Echo (TTE) Complete; Future 3. Essential (primary) hypertension Normotensive on current meds - ECG 12 lead; Future - ECG 12 lead 4. Carotid artery disease, unspecified laterality, unspecified type (HCC) Overdue for reevaluation - Ultrasound Doppler Carotid Bilateral; Future 5. Nonrheumatic aortic (valve) insufficiency For reevaluation - Transthoracic Echo (TTE) Complete; Future Plan 1. Eliquis is increased to 5 twice daily which should be therapeutic dose for this patient. 2. Office follow-up in 3 weeks with EKG. If atrial fibrillation still present, patient will be scheduled for cardioversion after he has been on uninterrupted therapeutic Eliquis dose for at least 30 days. 3. Echocardiogram 4. Carotid Doppler I, Rod Bueno M.D. personally performed the service described in this documentation; it is accurate and complete. Scribed by Cassy Dumas RN and electronically signed by Rod Bueno M.D. Electronically signed by: Rod Bueno M.D. 03/27/2023 4:13 PM documented in this encounter Plan of Treatment Upcoming Encounters Date Type Department Care Team Description 05/22/2023 10:30 AM CDT Office Visit [facility] Cardiology [address], [place] [address] [place] [phone] Gracy Reeves NP [address] [place] [address] [place] [address] 09/25/2023 3:00 PM POWER CLEANER OPERATOR Office Visit [facility] Cardiology [address], [place] [address] [place] [phone] Glo Watson APRN-GRAIN SHIPPER [address] [place] [address] documented as of this encounter Procedures Procedure Name Priority Date/Time Associated Diagnosis Comments ECG 12-LEAD Routine 03/28/2023 3:45 PM CDT Essential (primary) hypertension LAST EJECTION FRACTION? Routine 11/30/2020 10:24 AM CDT documented in this encounter Results * Ultrasound [...] were not included. Date of Exam:03/29/23 MR#: [id number] Patient: Jonathan Restrepo Referring Physician: Rod Bueno Date of : 1935 Technologist: Ermelinda Boo RD, RVT BILATERAL CAROTID DUPLEX ULTRASOUND B-mode imaging, [...] 03/29/23 Date of : 1935 Medical Record: [id number] Room Number: 2 Accession Number: [id number] Ht: 5'6 Wt: 182 BSA: 1.93 Environmental Monitoring Specialist: Ermelinda Boo RDCS, RVT BP: 126/68 HR: [...] 0.6 - 0.9 1.78 RV Max Short [place] Mitral Valve: (cm) 2.5 - 4.1 2.5 [...] (msec) Rod Bueno MD CV ECHO PROCEDURES * ECG 12 lead (03/28/2023 3:45 PM CDT) Narrative [facility] ECG - 03/28/2023 3:45 PM CDT Atrial fibrillation -frequent ectopic ventricular beats # VECs = 2 Low voltage in limb leads. -Incomplete right bundle branch block and left axis -anterior fascicular block. ABNORMAL Rod Bueno MD ECG ORDERABLES [facility] ECG * Last Ejection Fraction? (11/30/2020 10:24 AM CDT) EF 55 % Anatomical Region Laterality Modality Other Historical Provider CORE MEASURES ORD ERABLES documented in this encounter Visit Diagnoses Diagnosis Paroxysmal atrial fibrillation (HCC)- Primary Shortness of breath Essential (primary) hypertension Carotid artery disease, unspecified laterality, unspecified type (HCC) Nonrheumatic aortic (valve) insufficiency Nonrheumatic aortic (valve) insufficiency Shortness of breath Carotid artery disease, unspecified laterality, unspecified type (HCC) documented in this encounter Care Teams Federal Mediator Relationship Specialty Start Date End Date Milo Francis MD [address] [place] [address] PCP - General Family Medicine 03/27/23 documented as of this encounter
--- OUTSIDE RECORDS SUMMARY | 2023-05-17 18:00 | XMS REPORT | Encounter Summary ---
Author Author [facility] Organization [facility] Address Unknown Phone Unavailable Care Team Providers Care Tool Adjuster Name Role Phone Milo Francis MD PCP [phone] Encounter Details Date Type Department Care Team Description 04/26/2023 Clinic Scan Only Encounter [facility] Records [address] [place] [phone] Blob, Scan Provider Social History Tobacco Use Types Packs/Day Years [...] 05/22/2023 10:30 AM CDT Office Visit [facility] Cardiology [address], [address] [phone] Gracy Reeves NP [address] [address] 09/25/2023 3:00 PM PHYSICIAN OBSTETRICIAN Office Visit [facility] Cardiology [address], [address] [phone] Glo Watson, CLERICAL CLERK-GEOSCIENCES ASSOCIATE PROFESSOR [address] [place] [address] documented as of this encounter Visit Diagnoses Not on filedocumented in this encounter Care Teams Tool Adjuster Relationship Specialty Start Date End Date Milo Francis MD [address] [place] [address] PCP - General Family Medicine 03/27/23 documented as of this encounter
[2023-05-17] MEDS: NS IV 1000 ML 1,000 ML IV SCH (18:23)
--- NOTE | 2023-05-17 18:54 | Tele-ICU Progress Note ---
Subjective Date Seen by a Provider: May 17, 2023 Time Seen by a Provider: 18:52 Subjective/Events-last exam (Tele-ICU Physician , consultation as per request of PCP Service provided via interactive audio and video telecommunications E-CARE system to a patient admitted to ICU bed in [facility]. Available chart/ vitals / labs / Images reviewed H&P is from ER notes Patient's information available about PMH, Shx, Fhx allergy reviewed inEMR. ROS as per chart and RN report Now in ICU, hemodynamically stable Video assessment done using teleICU camera, rest of exam as per RN Discussed with RN. Hospital course: transfer from other hospital , no chart avalable yet A/P A fib RVR - cards consulted - rate controlled now , no CP no SOB - not hypoxic -ECHO ordered - AC - eliquis s/p hip replacement Lines : , (Central Line Necessity Reviewed) Griffith: OG: Nutrition: Analgesia: Anxiety/ delirium VTE Prophylaxis: eliquis Stress Ulcer Prophylaxis: Plans in collaboration with bedside consultants and IM MDs. Discussed with RN to reach out if any questions or concerns A total of 4 minutes of critical care time was devoted to this patient today, required to treat and/or prevent further deterioration of critical care condition ( as above ) . I am remotely monitoring this patient from another state. I am unable to do the bedside exam, and history/physical and pertinent information is taken from other notes in the computer and bedside staff. . Sepsis Event Evaluation Height, Weight, BMI Height: '" Weight: lbs. oz. kg; 27.04 BMI Method: Exam Exam Patient acknowledged, consented, and participated in this virtual visit which was conducted using real time audio/video Vital Signs Date Time Temp Pulse Resp B/P (MAP) Pulse Ox O2 Delivery O2 Flow Rate FiO2 05/17/23 18:08 Room Air 05/17/23 18:02 67 05/17/23 18:00 67 28 93 Room Air 05/17/23 17:55 36.7 20 114/57 (76) 92 Room Air Height & Weight Height: '" Weight: lbs. oz. kg; 27.04 BMI Method: General Appearance: Other Assessment/Plan Assessment/Plan 1 THALIA OLSEN MD May 17, 2023 18:54
[2023-05-17 19:16] LABS: ALBUMIN 2.7 GM/DL (3.2-4.5); POTASSIUM 3.9 MMOL/L (3.6-5.0)
[2023-05-17 19:18] LABS: CALCIUM 7.8 MG/DL (8.5-10.1)
[2023-05-17 19:19] LABS: TOTAL PROTEIN 5.2 GM/DL (6.4-8.2)
[2023-05-17 19:21] LABS: BILIRUBIN,TOTAL 0.5 MG/DL (0.1-1.0)
[2023-05-17 19:23] LABS: CREATININE SERUM 0.81 MG/DL (0.60-1.30)
[2023-05-17 19:26] LABS: BASOPHILS % (AUTO) 0 % (0-10); EOSINOPHILS % (AUTO) 0 % (0-10); HEMATOCRIT 30 % (40-54); HEMOGLOBIN 10.2 g/dL (13.3-17.7); LYMPHOCYTES # (AUTO) 0.3 10^3/uL (1.0-4.0); LYMPHOCYTES % (AUTO) 1 % (12-44); MEAN CORPUSCULAR HEMOGLOBIN 35 pg (25-34); MEAN CORPUSCULAR HGB CONC 34 g/dL (32-36); MEAN CORPUSCULAR VOLUME 102 fL (80-99); MEAN PLATELET VOLUME 9.1 fL (9.0-12.2); MONOCYTES # (AUTO) 0.6 10^3/uL (0.0-1.0); MONOCYTES % (AUTO) 3 % (0-12); NEUTROPHILS # (AUTO) 20.8 10^3/uL (1.8-7.8); NEUTROPHILS % (AUTO) 95 % (42-75); PLATELET COUNT 260 10^3/uL (130-400); WHITE BLOOD COUNT 21.9 10^3/uL (4.3-11.0)
[2023-05-17 20:31] LABS: BAND NEUTROPHILS 1 %; BURR CELLS SLIGHT; MONOCYTES % (MANUAL) 1 %; NEUTROPHILS % (MANUAL) 98 %; PLATELET ESTIMATE ADEQUATE; POIKILOCYTOSIS SLIGHT
[2023-05-17] MEDS: APIXABAN 2.5 MG TABLET PO SCH (20:48)
[2023-05-17] MEDS: dilTIAZem 30 MG TABLET PO SCH (20:48)
[2023-05-17] MEDS: TAMSULOSIN 0.4 MG (FLOMAX) CAP PO SCH (20:48)
[2023-05-17] MEDS: BETHANECHOL 25 MG TABLET PO SCH (20:48)
[2023-05-17] MEDS: DOCUSATE SODIUM 100 MG CAPSULE PO SCH (20:49)
[2023-05-17] MEDS: SENNOSIDES 8.6 MG TABLET PO SCH (20:49)
[2023-05-17] MEDS: oxyCODONE IMMEDIATE RELEASE 5 MG TABLET PO PRN (20:54)
[2023-05-18] MEDS: dilTIAZem 30 MG TABLET PO SCH ×5 (02:01→23:11)
[2023-05-18] MEDS: NS IV 1000 ML 1,000 ML IV SCH (02:01)
[2023-05-18] MEDS: oxyCODONE IMMEDIATE RELEASE 5 MG TABLET PO PRN ×2 (05:00→16:39)
[2023-05-18 05:09] LABS: BASOPHILS % (AUTO) 0 % (0-10); EOSINOPHILS % (AUTO) 0 % (0-10); HEMATOCRIT 27 % (40-54); LYMPHOCYTES # (AUTO) 0.5 10^3/uL (1.0-4.0); LYMPHOCYTES % (AUTO) 3 % (12-44); MEAN CORPUSCULAR HEMOGLOBIN 34 pg (25-34); MEAN CORPUSCULAR HGB CONC 34 g/dL (32-36); MEAN CORPUSCULAR VOLUME 101 fL (80-99); MEAN PLATELET VOLUME 9.2 fL (9.0-12.2); MONOCYTES # (AUTO) 1.2 10^3/uL (0.0-1.0); MONOCYTES % (AUTO) 8 % (0-12); NEUTROPHILS # (AUTO) 14.3 10^3/uL (1.8-7.8); NEUTROPHILS % (AUTO) 89 % (42-75); PLATELET COUNT 214 10^3/uL (130-400); WHITE BLOOD COUNT 16.1 10^3/uL (4.3-11.0)
[2023-05-18 05:32] LABS: ALBUMIN 2.4 GM/DL (3.2-4.5); BILIRUBIN,TOTAL 0.5 MG/DL (0.1-1.0); CALCIUM 7.6 MG/DL (8.5-10.1); CREATININE SERUM 0.76 MG/DL (0.60-1.30); MAGNESIUM 1.4 MG/DL (1.6-2.4); PHOSPHORUS 2.5 MG/DL (2.3-4.7); POTASSIUM 3.9 MMOL/L (3.6-5.0); TOTAL PROTEIN 4.4 GM/DL (6.4-8.2)
[2023-05-18] MEDS ORDERED: MAGNESIUM 1 GM/100 ML IVPB 100 ML IV SCH (06:00)
[2023-05-18] MEDS ORDERED: POTASSIUM CL 10MEQ/50ML IVPB 50 ML IV SCH (06:00)
[2023-05-18] MEDS ORDERED: POTASSIUM CHLORIDE 20 MEQ TABLET PO SCH (06:00)
[2023-05-18] MEDS: BETHANECHOL 25 MG TABLET PO SCH ×4 (06:23→19:43)
[2023-05-18] MEDS: MAGNESIUM 1 GM/100 ML IVPB 100 ML IV SCH ×3 (06:23→10:45)
[2023-05-18 06:39] LABS: BACTERIA,URINE FEW /HPF; BILIRUBIN,URINE NEGATIVE (NEGATIVE); CLARITY,URINE CLEAR; COLOR,URINE ORANGE; GLUCOSE, URINE (UA) TRACE (NEGATIVE); KETONES,URINE NEGATIVE (NEGATIVE); LEUKOCYTE ESTERASE ,URINE TRACE (NEGATIVE); NITRITE,URINE POSITIVE (NEGATIVE); PROTEIN,URINE 1+ (NEGATIVE)
--- NOTE | 2023-05-18 08:28 | Progress Note ---
Progress Note Patient ID: Jonathan Restrepo is a 87 y.o. male. Assessment/Plan: Diagnoses and all orders for this visit: Need for influenza vaccination - Flu vaccine 65yo and older, adjuvanted IM Elevated INR Abnormal test results, could be related to combination of Eliquis and diclofena c, recommend to discontinue Clofenax, will repeat INR, might need additional INR testing next week. - PT/INR - Partial Thromboplastin Time Pain of right hip Chronic. Active. Managed by Ortho, surgery scheduled for end of this month. Recommend against diclofenac since patient is on Eliquis, continue Tylenol as baseline therapy for pain. We will have tramadol available as needed if he gets severe pain. Acute Pain control (Initial Rx of 7 days or less ): The patient currently has acute episode of pain which will require Class II Opioid treatment(or other opioid treatment). Current and Past medical history was obtained and reviewed in context of this evaluation, including the experience of the patient with non opioid medication and non pharmacological pain-management approaches and substance abuse history. Examination performed as documented in chart. Care was taken to develop a treatment plan, focused on determining the cause of the pain of the patient. [place] Prescription Monitoring Program([employer]) data was accessed and reviewed and found to be appropriate in regard to current pain management plan. Initial prescription was chosen to be the lowest effective dose of immediate release opioid drug for patient's condition, and quantity of this initial prescription is limited to the amount which would be needed for no more than 7 days of therapy. (If patient under 18 years old or , a written Patient- Provider/Pain Management Agreement is entered into at this time as well, to be signed by patient and provider and scanned into chart.) Risks of prescribed opioid medications were discussed with the patient or parent/guardian, including but not limited to: 1. The risks of addiction and overdose associated with opioid drugs and the dangers of taking opioid drugs with alcohol, benzodiazepines and other central nervous system depressants; 2. The reasons why the prescription is necessary; 3. Alternative treatments that may be available; and 4. Risks associated with the use of the drugs being prescribed, specifically that opioids are highly addictive, even when taken as prescribed, that there is a risk of developing a physical or psychological dependence on the controlled dangerous substance, and that the risks of taking more opioids than prescribed or mixing sedatives, benzodiazepines or alcohol with opioids can result in fatal respiratory depression. The patient or the parent or guardian of the patient, as applicable, has verbalized understanding of the risks of developing a physical or psychological dependence on the controlled dangerous substance and alternative treatments that may be available. Educational material has been provided as appropriate. Link to free mail service for Naloxone patient use: https://[email or web address].org/overdose/ Benign essential hypertension Chronic. Stable. Continue metoprolol, follow-up in 2 months and as needed. Chronic atrial fibrillation Chronic. Stable. Rate controlled, patient scheduled to have ablation with surgery next week. Continue metoprolol, Eliquis again discussed discontinuing diclofenac. Follow-up in 6 weeks and as needed. Ileostomy status Chronic. Stable. Ileostomy present. Other orders - mupirocin (Bactroban) 2 % ointment; Apply with q-tip inside both sides of the nose twice a day for the seven days leading up to surgery. - traMADol (Ultram) 50 MG tablet; Take 1 tablet (50 mg) by mouth every 6 (six) hours as needed for pain for up to 7 days. Subjective: Chief Complaint Patient presents with ? Follow-up Wants to talk about his high INS from pre-op yesterday and compared to previous labs Patient is here for hypertension, A-fib, right hip pain, elevated INR. Patient has surgery planned for right hip, had preop labs, that showed significant elevation of INR. Patient has A-fib, on Eliquis, been taking diclofenac for hip pain. HPI The following portions of the patient's history were reviewed and updated as appropriate: vitals, allergies, current medications, past family history, past medical history, past social history, past surgical history, and problem list. Review of Systems Musculoskeletal: Positive for arthralgias. All other systems reviewed and are negative. Objective: Physical Exam Vitals and nursing note reviewed. Constitutional: General: He is not in acute distress. Appearance: Normal appearance. HENT: Head: Normocephalic and atraumatic. Nose: Nose normal. Mouth/Throat: Mouth: Mucous membranes are moist. Pharynx: Oropharynx is clear. Eyes: Extraocular Movements: Extraocular movements intact. Conjunctiva/sclera: Conjunctivae normal. Pupils: Pupils are equal, round, and reactive to light. Cardiovascular: Rate and Rhythm: Normal rate and regular rhythm. Heart sounds: Normal heart sounds. Pulmonary: Effort: Pulmonary effort is normal. Breath sounds: Normal breath sounds. Abdominal: General: Abdomen is flat. There is no distension. Palpations: Abdomen is soft. Tenderness: There is no abdominal tenderness. Musculoskeletal: General: Tenderness present. Cervical back: Normal range of motion. Right lower leg: No edema. Left lower leg: No edema. Comments: Right hip pain, reduced range of motion right hip, walks with a walker. Skin: General: Skin is warm and dry. Neurological: Mental Status: He is alert. Mental status is at baseline. Psychiatric: Mood and Affect: Mood normal. Behavior: Behavior normal. CARDIOLOGY HISTORY AND PHYSICAL Patient Name: Jonathan Restrepo Date of : 1935 Referring/Primary Care Provider: Milo Farncis MD Chief Complaint: Atrial fibrillation SUBJECTIVE: HISTORY OF PRESENT ILLNESS: Mr. Restrepo was found to be in atrial fibrillation by his PCP this summer. Saw him about 5 weeks ago and adjusted his Eliquis to therapeutic dose. He returns now for attempt at direct-current cardioversion. PAST MEDICAL HISTORY: Past Medical History: Diagnosis Date Allergic Arthritis COPD (chronic obstructive pulmonary disease) Elevated PSA Extensor tenosynovitis of left wrist Hypertension Osteoarthritis PAST SURGICAL HISTORY: Past Surgical History: Procedure Laterality Date CATARACT EXTRACTION W/ INTRAOCULAR LENS IMPLANT, BILATERAL 09/2011 CHOLECYSTECTOMY KNEE ARTHROPLASTY Left 10/19/2008 Dr. Hardy TRANSURETHRAL RESECTION OF PROSTATE 03/03/2010 Prsostate chips were not sent for pathology. [place] VASECTOMY FAMILY HISTORY: Family History Problem Relation Age of Onset Cataracts Mother Alcohol abuse Father Anesthesia problems Neg Hx Clotting disorder Neg Hx SOCIAL HISTORY: Social History Tobacco Use Smoking status: Former Packs/day: 1.00 Years: 40.00 Additional pack years: 0.00 Total pack years: 40.00 Types: Cigarettes Start date: 07/23/1943 Quit date: 07/23/1987 Years since quittin.7 Smokeless tobacco: Never Substance and Sexual Activity Alcohol use: Yes Alcohol/week: 42.0 standard drinks of alcohol Types: 42 Cans of beer per week Comment: 6 cans of beer/day Drug use: No Sexual activity: Defer MEDICATIONS: No outpatient medications have been marked as taking for the 05/01/23 encounter (Hospital Encounter). ALLERGIES: No Known Allergies REVIEW OF SYSTEMS: A full 13 point review of systems was completed as was negative except as noted above in HPI OBJECTIVE: VITALS: There were no vitals taken for this visit. PHYSICAL EXAM Constitutional: General appearance: No acute distress, well appearing and well nourished. Neck: Jugular veins: Normal. Thyroid: Normal, no thyromegaly. Respiratory: Respiratory effort: No increased work of breathing or signs of respiratory distress. Auscultation of lungs: Clear to auscultation. Cardiovascular: Palpation of heart: Normal PMI, no thrills. Auscultation of heart: Irregular rate and rhythm, normal S1 and S2, without murmurs. Carotid pulse: 2+ bilaterally, no bruits. Femoral pulse: 2+ bilaterally, no bruits. Popliteal pulse: 2+ bilaterally. Dorsalis Pedis pulse: 2+ bilaterally. Posterior Tibial pulse: 2+ bilaterally. Examination of extremities for edema and/or varicosities: Normal. Abdomen: Abdomen: Non tender, no masses. Liver and spleen: No hepatomegaly or splenomegaly. Musculoskeletal: Digits and nails: Normal without clubbing or cyanosis. Psychiatric: Orientation to person, place, and time: Normal. Mood and affect: Normal. LAB: Recent Lab Results Lab Units 04/26/23 1410 SODIUM mmol/L 134* POTASSIUM SERUM mmol/L 4.8 CHLORIDE SERUM mmol/L 105 CO2 mmol/L 21* BUN mg/dL 16 CREATININE mg/dL 1.15 GLUCOSE mg/dL 102* CALCIUM mg/dL 9.0 Recent Lab Results Lab Units 04/26/23 1410 WHITE BLOOD CELL COUNT K/uL 9.4 HEMOGLOBIN g/dL 11.2* HEMATOCRIT % 34.0* PLATELET COUNT K/uL 220 No results for input(s): "CPK", "TROP", "CKMB" in the last 168 hours. Lab Results Component Value Date BNP 65 01/31/2021 Recent Lab Results Lab Units 04/27/23 1402 INR 1.1 CARDIOGRAPHICS: EKG: No results found. IMAGING: No results found. ASSESSMENT AND PLAN: Patient Active Problem List Diagnosis Date Noted Primary osteoarthritis of right hip 02/28/2023 Chronic atrial fibrillation 02/22/2023 PAF (paroxysmal atrial fibrillation) 09/29/2021 Chronic pain of both shoulders 07/14/2021 COPD (chronic obstructive pulmonary disease) 01/31/2021 Osteoarthritis 01/31/2021 Joint inflammation 01/31/2021 Hyponatremia 01/31/2021 Elevated PSA 01/03/2021 Extensor tenosynovitis of left wrist 04/14/2020 Primary osteoarthritis of both hands 09/18/2019 Premature ventricular contractions 08/07/2019 Spinal meningioma 04/24/2019 Spinal stenosis of lumbar region with neurogenic claudication 04/15/2019 Chronic midline low back pain without sciatica 04/01/2019 Leg cramps 04/01/2019 Macular drusen, bilateral 07/31/2017 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 07/31/2017 Anxiety state 06/27/2017 History of colon cancer 06/27/2016 Left hydrocele 06/05/2016 Ileostomy status 04/28/2016 Abnormal heart sounds 04/28/2016 Nondependent alcohol abuse, continuous drinking behavior 04/28/2016 Atopic rhinitis 04/28/2016 Benign essential hypertension 04/28/2016 Osteoarthritis of cervical spine 04/28/2016 Cervical radiculopathy 04/28/2016 Erectile dysfunction of nonorganic origin 04/28/2016 Primary hypertriglyceridemia 04/28/2016 Former smoker 04/28/2016 Knee pain 04/28/2016 Adiposity 04/28/2016 Persistent atrial fibrillation Plan: Direct-current cardioversion AS HULL DO May 18, 2023 08:28
--- NOTE | 2023-05-18 09:25 | Diagnostic Imaging Report ---
CLINICAL INDICATION: Patient with hypoxia. EXAM: Portable chest x-ray upright view. COMPARISON: None. FINDINGS: There is cardiomegaly with no significant pulmonary vascular congestion. There are patchy airspace opacities and nodular opacities involving the periphery of both lungs with both lung bases affected the most. Slight increased lung markings are also seen. There is consolidation in the left lung base. There is no right pleural effusion. Left pleural effusion cannot be excluded given the consolidation in the left lung base. There is no pneumothorax. There are degenerative spurs involving the thoracic spine. IMPRESSION: 1: There are increased lung markings and multiple nodular and groundglass opacifications involving both lungs in the periphery and both lung bases. These findings may be related to lung infiltrates with or without chronic lung changes. Comparison to prior chest x-ray to evaluate for chronicity would better evaluate. 2: There is mild consolidation involving the left lung base. Left pleural effusion cannot be completely excluded. Dictated by: Dictated on workstation # [id number]
--- NOTE | 2023-05-18 09:26 | Occupational Therapy Eval ---
OT Evaluation-General/PLF Medical Diagnosis Admission Date May 17, 2023 at 17:56 Medical Diagnosis: a fib Onset Date: May 17, 2023 Therapy Diagnosis Therapy Diagnosis: weakness Precautions Precautions/Isolations: Standard Precautions Weight Bear Status Weight Bearing Restriction: Weight Bearing/Tolerated s/p R CARLOS WBAT this week in [place] Referral Referral Reason: Self Care, Evaluation/Treatment Medical History Pertinent Medical History: Atrial Fib, COPD, HTN Additional Medical History ileostomy Reviewed History: Yes Social History Home: Single Level Current Living Status: Spouse Entry Into Home: Stairs Without Railing ADL-Prior Level of Function SCALE: Activities may be completed with or without assistive devices. 3-Zqkndwfbcc-bzamhos completes the activity by him/herself with no assistance from a helper. 5-Set-up or Clean-up Assistance-helper sets up or cleans up; patient completes activity. [place] assists only prior to or following the activity. 4-Supervision or Touching Assistance-helper provides verbal cues and/or touching/steadying and/or contact guard assistance as patient completes activity. Assistance may be provided throughout the activity or intermittently. 3-Partial/Moderate Assistance-helper does LESS THAN HALF the effort. [place] lifts, holds or supports trunk or limbs, but provides less than half the effort. 2-Substantial/Maximal Assistance-helper does MORE THAN HALF the effort. [place] lifts or holds trunk or limbs and provides more than half the effort. 2-Aexbpkdll-cpcdau does ALL the effort. Patient does none of the effort to complete the activity. Or, the assistance of 2 or more helpers is required for the patient to complete the activity. If activity was not attempted, code reason: 7-Patient Refused. 9-Not Applicable-not attempted and the patient did not perform the activity before the current illness, exacerbation or injury. 10-Not Attempted due to Environmental Limitations-(lack of equipment, weather restraints, etc.). 88-Not Attempted due to Medical Conditions or Safety Concerns. Self Care: Independent Functional Cognition: Independent Drive Self: Yes OT Current Status Subjective Agreeable to OT Pain Numeric Pain Scale: 4 Location Body Site: Hip Mental Status/Objective Patient Orientation: Person, Place, Time, Situation Attachments: Griffith Catheter, IV (leaking and replaced), Telemetry Current Glasses/Contacts: Yes Hand Dominance: Right Upper Extremity ROM BUE ROM WFLS Upper Extremity Coordination WFLs Upper Extremity Sensation INTACT Upper Extremity Strength -4/5 grossly ADL-Treatment Eating (QC): 6 Oral Hygiene (QC): 5 Shower/Bathe Self (QC): 7 Upper Body Dressing (QC): 4 Lower Body Dressing (QC): 4 On/Off Footwear (QC): 5 Toileting Hygiene (QC): 4 Reports FWW use at home, however does not use FWW safely or correctly Education OT Patient Education: Correct positioning, Exercise program, Modified ADL techniques, Progress toward Goal/Update tx plan, Purpose of tx/functional activities, Reviewed precautions, Rehab process, Safety issues, Transfer techniques, Use of adapted equipment Teaching Recipient: Patient Response to Teaching: Verbalize Understanding, Return Demonstration OT Half-Way Goals Half-Way Goals Eating (QC): 6 Oral Hygiene (QC): 6 Toileting Hygiene (QC): 6 Shower/Bathe Self (QC): 6 Upper Body Dressing (QC): 6 Lower Body Dressing (QC): 6 On/Off Footwear (QC): 6 1=Demonstrate adherence to instructed precautions during ADL tasks. 2=Patient will verbalize/demonstrate understanding of assistive devices/modifications for ADL. 3=Patient will improve strength/tolerance for activity to enable patient to perform ADL's. OT Education/Plan Problem List/Assessment Assessment: Decreased Activ Tolerance, Decreased UE Strength, Impaired Coordination, Impaired Funct Balance, Restricted Funct UE ROM Discharge Recommendations Plan/Recommendations: Continue POC Therapy Discharge Recommendati: Post Acute OT Treatment Plan/Plan of Care Treatment,Training & Education: Yes Patient would benefit from OT for education, treatment and training to promote independence in ADL's, mobility, safety and/or upper extremity function for ADL's. Plan of Care: ADL Retraining, Functional Mobility, Group Exercise/Act as Ind, UE Funct Exercise/Act Treatment Duration: May 22, 2023 Frequency: 3 times per week (3-5 times per week) Estimated Hrs Per Day: .25 hour per day Agreement: Yes Rehab Potential: Guarded Time Start Time: 08:11 Stop Time: 08:30 DATE: May 18, 2023 Total Time Billed (hr/min): 19 Billed Treatment Time EVM 19 DAVID BOYER OT May 18, 2023 09:26
--- NOTE | 2023-05-18 09:29 | Physical Therapy Evaluation ---
PT Evaluation-General Medical Diagnosis Admission Date May 17, 2023 at 17:56 Medical Diagnosis: A-fib Onset Date: May 17, 2023 Therapy Diagnosis Therapy Diagnosis: debility/weakness Precautions Precautions/Isolations: Standard Precautions Weight Bear Status Right Lower Extremity: Right Weight Bearing/Tolerated Left Lower Extremity: Left Full Weight Bearing Referral Physician: Lauryn Reason for Referral: Evaluation/Treatment Medical History Pertinent Medical History: Atrial Fib, COPD Current History Transfer from [facility] due to A-fib (s/p right THR anterior approach) Social History Home: Single Level Current Living Status: Spouse Prior Prior Level of Function SCALE: Activities may be completed with or without assistive devices. 9-Nmyeesmwag-[id number] completes the activity by him/herself with no assistance from a helper. 5-Set-up or Clean-up Assistance-helper sets up or cleans up; patient completes activity. [place] assists only prior to or following the activity. 4-Supervision or Touching Assistance-helper provides verbal cues and/or touching/steadying and/or contact guard assistance as patient completes activity. Assistance may be provided throughout the activity or intermittently. 3-Partial/Moderate Assistance-helper does LESS THAN HALF the effort. [place] lifts, holds or supports trunk or limbs, but provides less than half the effort. 2-Substantial/Maximal Assistance-helper does MORE THAN HALF the effort. [place] lifts or holds trunk or limbs and provides more than half the effort. 9-Blocmwegd-oczvpp does ALL the effort. Patient does none of the effort to complete the activity. Or, the assistance of 2 or more helpers is required for the patient to complete the activity. If activity was not attempted, code reason: 7-Patient Refused. 9-Not Applicable-not attempted and the patient did not perform the activity before the current illness, exacerbation or injury. 10-Not Attempted due to Environmental Limitations-(lack of equipment, weather restraints, etc.). 88-Not Attempted due to Medical Conditions or Safety Concerns. Bed Mobility: 6 Transfers (B,C,W/C): 6 Gait: 6 Stairs: 6 Indoor Mobility (Ambulation): Independent Stairs: Independent Prior Devices Use: None PT Evaluation-Current Subjective Patient agrees to therapy. Denies pain at this time. Objective Patient Orientation: Normal For Age Attachments: Colostomy/Ileostomy, Griffith Catheter, IV ROM/Strength ROM Lower Extremities bilateral LE WFL Strength Lower Extremities right LE 3+/5 grossly/left LE 4/5 Integumentary/Posture Integumentary refer to nursing notes Bladder Incontinence: Griffith Cath Posture slight trunk flexed posture in stand Neuromuscular (Tone, Coordination, Reflexes) grossly intact Sensory Vision: Functional Hearing: Functional Transfers Sit to Stand (QC): 4 Gait Mode of Locomotion: Walk Anticipated Mode of Locomotion: Walk Walk 10 feet (QC): 4 Walk 50 ft with 2 Turns(QC): 4 Walk 150 ft (QC): 4 Distance: 200' Gait Assistive Device: FWW Comments/Gait Description trunk and knee flexed posture/functional gait sequence Balance Sitting Static: Normal Sitting Dynamic: Normal Standing Static: Normal Standing Dynamic: Normal Assessment/Needs Patient will benefit from skilled PT to address functional strength and mobility to improve current LOF to safely return to home at maximum LOF. Rehab Potential: Fair PT Skilled Nursing Goals Amusement Ride Operator Goals PT Skilled Nursing Goals Time Frame: Jun 02, 2023 Roll Left & Right (QC): 6 Sit to Lying (QC): 6 Lying-Sitting on Side/Bed(QC): 6 Sit to Stand (QC): 6 Chair/Dub-ax-Qaigf Xfer(QC): 6 Toilet Transfer (QC): 6 Walk 10 feet (QC): 6 Walk 50ft with 2 Turns (QC): 6 Walk 150 ft (QC): 6 PT Plan Problem List Problem List: Functional Strength, Safety, Balance, Gait, Transfer, Bed Mobility Treatment/Plan Treatment Plan: Continue Plan of Care Treatment Plan: Bed Mobility, Education, Functional Activity Sita, Functional Strength, Gait, Safety, Therapeutic Exercise, Transfers Treatment Duration: Jun 02, 2023 Frequency: 11 times per week Estimated Hrs Per Day: .5 hour per day Patient and/or Family Agrees t: Yes Time Time In: 810 Time Out: 829 DATE: May 18, 2023 Total Billed Treatment Time: 19 [facility] May 18, 2023 09:29
[2023-05-18] MEDS ORDERED: meTOprolol INJECTION 5 MG/5 ML VIAL IV ONE (09:30)
--- NOTE | 2023-05-18 09:36 | History & Physical ---
JOSEPH VILLA 05/18/23 0935: History of Present Illness History of Present Illness Reason for visit/HPI CC: A Fib w/ RVR HPI: Mr Restrepo is an 87 y/o male with PMH of A Fib, COPD, aortic insufficienc y, mitral and tricuspid regurgitation presents s/p R hip surgery 05/16/2023 for A Fib with RVR. Pt was transferred from [facility] after surgery. He denies any chest pain, irregular rhythm, lightheadedness, or SOB at rest. He does report SOB when walking, only able to ambulate 15 ft before he feels the need to sit down. His main complaint today is his inability to urinate. He currently has a catheter in place that has orange colored urine. UA showed positive for 5-10 WBC, RBC, and few bacteria. His only home med is apixaban and vitamin supplements. Date of Admission May 17, 2023 at 17:56 I consulted on this patient on 05/18/23 09:30 Attending Physician Admitting Physician Admitting Physician: Cassidy Hull DO Attending Physician: Cassidy Hull DO Consult Allergies and Home Medications Allergies Coded Allergies: No Known Drug Allergies (Unverified , 05/17/23) Patient Home Medication List Home Medication List Reviewed: Yes Acetaminophen (Acetaminophen) 500 Mg Tablet, 1,000 MG PO Q8H PRN for PAIN-MILD (1-4), (Reported) Entered as Reported by: KELLY WORTHINGTON on 05/18/231337 Last Action: Reviewed Albuterol Sulfate (Ventolin Hfa) 90 Mcg Hfa.aer.ad, 2 PUFF PO Q8H PRN for SHORTNESS OF BREATH, (Reported) Entered as Reported by: KELLY WORTHINGTON on 05/18/231336 Last Action: Reviewed Apixaban (Eliquis) 5 Mg Tablet, 5 MG PO BID, (Reported) Entered as Reported by: KELLY WORTHINGTON on 05/18/231335 Last Action: Reviewed Folic Acid (Folic Acid) 1 Mg Tablet, 1 MG PO DAILY, (Reported) Entered as Reported by: KELLY WORTHINGTON on 05/18/231335 Last Action: Reviewed Lutein (Lutein) 40 Mg Capsule, 40 MG PO DAILY, (Reported) Entered as Reported by: KELLY WORTHINGTON on 10/27/23 1336 Last Action: Reviewed Metoprolol Tartrate (Metoprolol Tartrate) 50 Mg Tablet, 75 MG PO BID, (Reported) Entered as Reported by: KELLY WORTHINGTON on 05/18/231335 Last Action: Reviewed Umeclidinium Brm/Vilanterol Tr (Anoro Ellipta 62.5-25 Mcg INH) 62.5 Mcg-25 Mcg/Actuation Blst.w.dev, 1 PUFF PO DAILY, (Reported) Entered as Reported by: KELLY WORTHINGTON on 05/18/231335 Last Action: Reviewed Past Jicykoo-Dijzbm-Lovsqx Hx Patient Social History Marrital Status: Tobacco Use?: No Smoking Status: Former Smoker Use of E-Cig and/or Vaping dev: No Substance use?: No Alcohol Use?: No Pt feels they are or have been: No Current Status Advance Directives: Yes Advance Directive Location: Home Communicates: Verbally Primary Language: Albanian Implanted or Applied Medical D: None Past Medical History Surgeries: Joint Replacement COPD Atrial Fibrillation, Valvular Heart Disease Review of Systems Constitutional: No chills, No dizziness, No fever EENTM: no symptoms reported Respiratory: dyspnea on exertion Cardiovascular: No chest pain; Hx of Intervention (cardioversion 05/01/2023) Gastrointestinal: no symptoms reported Genitourinary: decreased output Skin: no symptoms reported Psychiatric/Neurological: No Symptoms Reported Physical Exam Vital Signs Vital Signs - First Documented 05/17/23 05/17/23 17:55 18:00 Temp 36.7 Pulse 67 Resp 20 B/P (MAP) 114/57 (76) Pulse Ox 92 O2 Delivery Room Air Capillary Refill : Height, Weight, BMI Height: '" Weight: lbs. oz. kg; 27.01 BMI Method: General Appearance: No Apparent Distress HEENT: PERRL/EOMI, Moist Mucous Membranes Neck: Full Range of Motion Respiratory: Chest Non Tender, Lungs Clear, No Respiratory Distress Cardiovascular: Irregularly Irregular Extremity: Normal Capillary Refill, No Calf Tenderness; No No Pedal Edema Neurologic/Psychiatric: Alert, Oriented x3, Normal Mood/Affect Skin: Normal Color Assessment/Plan Assessment and Plan Assessment: Mr Restrepo is a 87 y/o male presenting for A Fib w/ RVR s/p R hip surgery 05/15/2023 Plan: A Fib RVR -Troponin 0.116 -BNP 904 -continue apixaban -continue diltiazem -add metroprolol tartrate per Dr. Hawkins -pending echo Leukocytosis -WBC 21.9 -> 16.1 -UA positive for nitrites, 5-10 WBC and RBC, few bacteria, color orange -obtain urine culture -on emperic ceftriaxone Anemia -Hg 9 -continue to monitor CASSIDY HULL DO 05/18/232105: History of Present Illness History of Present Illness Reason for visit/HPI Chief complaint: A-fib with RVR with urinary retention postop HPI: This is an 87-year-old male with a history of atrial fibrillation status post cardioversion on 05/01/[address] Bueno who presented to this hospital following an uncomplicated right total hip replacement but had postop complications of atrial fibrillation with rapid ventricular response with urinary retention and overall frail status with decline. Cardiology has seen him. Oral anticoagulation maintained. Started on bladder meds so hopefully we can discontinue catheter. Date Seen by a Provider: May 18, 2023 Time Seen by a Provider: 11:00 Allergies and Home Medications Allergies Coded Allergies: No Known Drug Allergies (Unverified , 05/17/23) Patient Home Medication List Acetaminophen (Acetaminophen) 500 Mg Tablet, 1,000 MG PO Q8H PRN for PAIN-MILD (1-4), (Reported) Entered as Reported by: KELLY WORTHINGTON on 05/18/231337 Last Action: Reviewed Albuterol Sulfate (Ventolin Hfa) 90 Mcg Hfa.aer.ad, 2 PUFF PO Q8H PRN for SHORTNESS OF BREATH, (Reported) Entered as Reported by: KELLY WORTHINGTON on 05/18/231336 Last Action: Reviewed Apixaban (Eliquis) 5 Mg Tablet, 5 MG PO BID, (Reported) Entered as Reported by: KELLY WORTHINGTON on 05/18/231335 Last Action: Reviewed Folic Acid (Folic Acid) 1 Mg Tablet, 1 MG PO DAILY, (Reported) Entered as Reported by: KELLY WORTHINGTON on 05/18/231335 Last Action: Reviewed Lutein (Lutein) 40 Mg Capsule, 40 MG PO DAILY, (Reported) Entered as Reported by: KELLY WORTHINGTON on 05/18/231335 Last Action: Reviewed Metoprolol Tartrate (Metoprolol Tartrate) 50 Mg Tablet, 75 MG PO BID, (Reported) Entered as Reported by: KELLY WORTHINGTON on 05/18/231335 Last Action: Reviewed Umeclidinium Brm/Vilanterol Tr (Anoro Ellipta 62.5-25 Mcg INH) 62.5 Mcg-25 Mcg/Actuation Blst.w.dev, 1 PUFF PO DAILY, (Reported) Entered as Reported by: KELLY WORTHINGTON on 05/18/231335 Last Action: Reviewed Past Pbskcgs-Ghakaq-Youriy Hx Patient Social History Marrital Status: Employed/Student: retired Smoking Status: Former Smoker Past Medical History Surgeries: Joint Replacement COPD Atrial Fibrillation, Valvular Heart Disease Review of Systems Constitutional: see HPI Physical Exam General Appearance: No Apparent Distress, WD/WN, Chronically ill Eyes: Bilateral Eye Normal Inspection, Bilateral Eye PERRL, Bilateral Eye EOMI HEENT: PERRL/EOMI, Normal ENT Inspection, Pharynx Normal Neck: Full Range of Motion, Normal Inspection, Non Tender, Supple, Carotid Bruit Respiratory: Chest Non Tender, Lungs Clear, Normal Breath Sounds, No Accessory Muscle Use, No Respiratory Distress Cardiovascular: No Edema, No Gallop, No JVD, No Murmur, Normal Peripheral Pulses, Irregularly Irregular Gastrointestinal: Normal Bowel Sounds, No Organomegaly, No Pulsatile Mass, Non Tender, Soft Back: Normal Inspection, No CVA Tenderness, No Vertebral Tenderness Extremity: Normal Capillary Refill, Normal Inspection, Normal Range of Motion, Non Tender, No Calf Tenderness, No Pedal Edema Neurologic/Psychiatric: Alert, Oriented x3, No Motor/Sensory Deficits, Normal Mood/Affect Skin: Normal Color, Warm/Dry Lymphatic: No Adenopathy Assessment/Plan Assessment and Plan Assessment: A-fib with RVR Postop right hip replacement Urinary retention requiring Griffith catheter Leukocytosis Plan: Transfer to fourth floor Admission Diagnosis Admission Status: Inpatient Order (span 2 midnights) Reason for Inpatient Admission: Right hip replacement with A-fib with RVR with urinary retention with frail status and advanced age Supervisory-Addendum Brief Verification & Attestation Participated in pt care: history, MDM, physical Personally performed: exam, history, MDM, supervision of care Care discussed with: Medical Student Procedures: n/a Results interpretation: Verified all documentation Verification and Attestation of Medical Student E/M Service A medical student performed and documented this service in my presence. I reviewed and verified all information documented by the medical student and made modifications to such information, when appropriate. I personally performed the physical exam and medical decision making. Cassidy Hull, May 18, 2023,21:07 JOSEPH VILLA May 18, 2023 09:35 CASSIDY HULL DO May 18, 2023 21:06
[2023-05-18] MEDS: cefTRIAXone IV/IM 1,000 MG in NS (IVPB) 50 ML 50 ML IV SCH (09:54)
[2023-05-18] MEDS: TAMSULOSIN 0.4 MG (FLOMAX) CAP PO SCH ×2 (09:54→19:43)
[2023-05-18] MEDS: APIXABAN 2.5 MG TABLET PO SCH ×2 (09:54→19:43)
[2023-05-18] MEDS: DOCUSATE SODIUM 100 MG CAPSULE PO SCH ×2 (09:56→19:10)
[2023-05-18] MEDS: SENNOSIDES 8.6 MG TABLET PO SCH ×2 (09:57→19:10)
--- NOTE | 2023-05-18 10:04 | Consultation-Cardiology ---
HPI-Cardiology Cardiology Consultation Date of Consultation 05/18/23 Date of Admission Time Seen by Provider: 10:00 Indication: Paroxysmal atrial fibrillation HPI 87-year-old gentleman with history of paroxysmal atrial fibrillation, underwent hip replacement surgery, he was noted to be in atrial fibrillation perioperatively. Patient has been asymptomatic, denied any chest pain, shortness of breath. No palpitation, no syncope or near syncopal episodes Home Medications & Allergies Allergies: Coded Allergies: No Known Drug Allergies (Unverified , 05/17/23) Home Medication List Reviewed: Yes TLU-Percft-Truxfr Hx Patient Social History Marital Status: Employed/Student: retired Alcohol Use?: No Past Medical History Discussed below Family Medical History Significant Family History: No Pertinent Family Hx Review of Systems-General Review of Systems Constitutional: no symptoms reported, see HPI EENTM: see HPI, no symptoms reported Respiratory: no symptoms reported, see HPI Cardiovascular: see HPI Gastrointestinal: no symptoms reported, see HPI Genitourinary: no symptoms reported, see HPI Musculoskeletal: no symptoms reported, see HPI Skin: no symptoms reported, see HPI Psychiatric/Neurological: No Symptoms Reported, See HPI Reviewed Test Results Reviewed Test Results Lab Laboratory Tests Test 05/17/23 19:00 05/18/23 04:50 05/18/23 05:07 05/18/23 05:15 Range/Units White Blood Count 21.9 H 16.1 H 4.3-11.0 10^3/uL Red Blood Count 2.96 L 2.66 L 4.30-5.52 10^6/uL Hemoglobin 10.2 L 9.0 L 13.3-17.7 g/dL Hematocrit 30 L 27 L 40-54 % Mean Corpuscular Volume 102 H 101 H 80-99 fL Mean Corpuscular Hemoglobin 35 H 34 25-34 pg Mean Corpuscular Hemoglobin Concent 34 34 32-36 g/dL Red Cell Distribution Width 12.5 12.3 10.0-14.5 % Platelet Count 260 214 130-400 10^3/uL Mean Platelet Volume 9.1 9.2 9.0-12.2 fL Immature Granulocyte % (Auto) 1 1 % Neutrophils (%) (Auto) 95 H 89 H 42-75 % Lymphocytes (%) (Auto) 1 L 3 L 12-44 % Monocytes (%) (Auto) 3 8 0-12 % Eosinophils (%) (Auto) 0 0 0-10 % Basophils (%) (Auto) 0 0 0-10 % Neutrophils # (Auto) 20.8 H 14.3 H 1.8-7.8 10^3/uL Lymphocytes # (Auto) 0.3 L 0.5 L 1.0-4.0 10^3/uL Monocytes # (Auto) 0.6 1.2 H 0.0-1.0 10^3/uL Eosinophils # (Auto) 0.0 0.0 0.0-0.3 10^3/uL Basophils # (Auto) 0.0 0.0 0.0-0.1 10^3/uL Immature Granulocyte # (Auto) 0.2 H 0.1 0.0-0.1 10^3/uL Neutrophils % (Manual) 98 % Monocytes % (Manual) 1 % Band Neutrophils 1 % Platelet Estimate ADEQUATE Poikilocytosis SLIGHT Janine Cells SLIGHT Sodium Level 129 L 133 L 135-145 MMOL/L Potassium Level 3.9 3.9 3.6-5.0 MMOL/L Chloride Level 102 109 H 98-107 MMOL/L Carbon Dioxide Level 20 L 16 L 21-32 MMOL/L Anion Gap 7 8 5-14 MMOL/L Blood Urea Nitrogen 15 14 7-18 MG/DL Creatinine 0.81 0.76 0.60-1.30 MG/DL Estimat Glomerular Filtration Rate 85 87 BUN/Creatinine Ratio 19 18 Glucose Level 136 H 130 H 70-105 MG/DL Calcium Level 7.8 L 7.6 L 8.5-10.1 MG/DL Corrected Calcium 8.8 8.9 8.5-10.1 MG/DL Total Bilirubin 0.5 0.5 0.1-1.0 MG/DL Aspartate Amino Transf (AST/SGOT) 20 15 5-34 U/L Alanine Aminotransferase (ALT/SGPT) 16 11 0-55 U/L Alkaline Phosphatase 65 59 40-136 U/L Troponin I 0.116 H <0.028 NG/ML B-Type Natriuretic Peptide 904.6 H <100.0 PG/ML Total Protein 5.2 L 4.4 L 6.4-8.2 GM/DL Albumin 2.7 L 2.4 L 3.2-4.5 GM/DL Phosphorus Level 2.5 2.3-4.7 MG/DL Magnesium Level 1.4 L 1.6-2.4 MG/DL Lactic Acid Level 0.83 0.50-2.00 MMOL/L Urine Color ORANGE Urine Clarity CLEAR Urine pH 5.0 5-9 Urine Specific Upson 1.020 1.016-1.022 Urine Protein 1+ H NEGATIVE Urine Glucose (UA) TRACE H NEGATIVE Urine Ketones NEGATIVE NEGATIVE Urine Nitrite POSITIVE H NEGATIVE Urine Bilirubin NEGATIVE NEGATIVE Urine Urobilinogen 0.2 < = 1.0 MG/DL Urine Leukocyte Esterase TRACE H NEGATIVE Urine RBC (Auto) 1+ H NEGATIVE Urine RBC 5-10 H /HPF Urine WBC 5-10 H /HPF Urine Crystals NONE /LPF Urine Bacteria FEW H /HPF Urine Casts NONE /LPF Urine Mucus NEGATIVE /LPF Urine Culture Indicated YES Physical Exam Physical Exam Vital Signs Vital Signs - First Documented 05/17/23 05/17/23 17:55 18:00 Temp 36.7 Pulse 67 Resp 20 B/P (MAP) 114/57 (76) Pulse Ox 92 O2 Delivery Room Air Capillary Refill : Height, Weight, BMI Height: '" Weight: lbs. oz. kg; 27.01 BMI Method: General Appearance: Other Eyes: Bilateral Eye Normal Inspection, Bilateral Eye PERRL, Bilateral Eye EOMI HEENT: PERRL/EOMI, TMs Normal, Normal ENT Inspection, Pharynx Normal, Moist Mucous Membranes Neck: Full Range of Motion, Normal Inspection, Non Tender, Supple, Carotid Bruit Respiratory: Chest Non Tender, Normal Breath Sounds, No Accessory Muscle Use, No Respiratory Distress Cardiovascular: Regular Rate, Rhythm, No Edema, No Gallop, No JVD, No Murmur, Normal Peripheral Pulses, Other (Multiple episode of PAT's) Gastrointestinal: Normal Bowel Sounds, No Organomegaly, No Pulsatile Mass, Non Tender, Soft Back: Normal Inspection, No CVA Tenderness, No Vertebral Tenderness Extremity: Normal Capillary Refill, Normal Inspection, Normal Range of Motion, Non Tender, No Calf Tenderness, No Pedal Edema Neurologic/Psychiatric: Alert, Oriented x3, No Motor/Sensory Deficits, Normal Mood/Affect Skin: Normal Color, Warm/Dry Lymphatic: No Adenopathy A/P-Cardiology Admission Diagnosis Paroxysmal atrial fibrillation Paroxysmal atrial tachycardia Palpitation Hip replacement surgery Assessment/Plan Paroxysmal atrial fibrillation, currently in sinus rhythm with frequent APCs and PAT's He was started on Cardizem 30 mg every 6 hours yesterday. I will start on low-dose beta-katiana and evaluate tolerance and response Patient has been maintained on Eliquis which will be continued I will evaluate 2D echo Palpitation, currently asymptomatic, continue to monitor Status post hip replacement surgery, currently recovering Leukocytosis, anemia Continue to monitor Hyponatremia, slightly better today. Continue to monitor History of TURP, BPH History of cataract surgery KOREY FARIA MD May 18, 2023 10:04
[2023-05-18] MEDS: meTOprolol TARTRATE (IR) 25 MG TABLET PO SCH ×2 (10:45→19:43)
--- NOTE | 2023-05-18 13:12 | Physical Therapy Progress Note ---
Therapy Progress Note Patient refused treatment stating he has been "up and about" and is tired and wants to rest. RN notified. Patient transferring to [facility] on this date. DOC LAST PT May 18, 2023 13:12
[2023-05-18] MEDS ORDERED: FOLI1TAB33 PO (13:36)
[2023-05-18] MEDS ORDERED: LUTE40CA PO (13:36)
[2023-05-18] MEDS ORDERED: METO50TA15 PO (13:36)
[2023-05-18] MEDS ORDERED: UMEC1BLS PO (13:36)
[2023-05-18] MEDS ORDERED: APIX5TAB PO (13:36)
[2023-05-18] MEDS ORDERED: ALBU8.5H6 PO (13:37)
[2023-05-18] MEDS ORDERED: ACET-93 PO (13:38)
[2023-05-18 13:51] VITALS: BP 109/56
[2023-05-18 16:00] VITALS: BP 121/49
[2023-05-18 19:38] VITALS: BP 145/55
[2023-05-18 23:05] VITALS: BP 118/56
[2023-05-19 03:47] VITALS: BP 112/56
[2023-05-19 04:52] LABS: BASOPHILS % (AUTO) 0 % (0-10); EOSINOPHILS # (AUTO) 0.1 10^3/uL (0.0-0.3); EOSINOPHILS % (AUTO) 1 % (0-10); HEMATOCRIT 26 % (40-54); HEMOGLOBIN 8.7 g/dL (13.3-17.7); LYMPHOCYTES # (AUTO) 0.8 10^3/uL (1.0-4.0); LYMPHOCYTES % (AUTO) 6 % (12-44); MEAN CORPUSCULAR HEMOGLOBIN 34 pg (25-34); MEAN CORPUSCULAR HGB CONC 34 g/dL (32-36); MEAN CORPUSCULAR VOLUME 101 fL (80-99); MEAN PLATELET VOLUME 9.7 fL (9.0-12.2); MONOCYTES # (AUTO) 1.3 10^3/uL (0.0-1.0); MONOCYTES % (AUTO) 9 % (0-12); NEUTROPHILS # (AUTO) 11.9 10^3/uL (1.8-7.8); NEUTROPHILS % (AUTO) 84 % (42-75); PLATELET COUNT 252 10^3/uL (130-400); WHITE BLOOD COUNT 14.2 10^3/uL (4.3-11.0)
[2023-05-19] MEDS: BETHANECHOL 25 MG TABLET PO SCH ×4 (04:56→19:43)
[2023-05-19] MEDS: dilTIAZem 30 MG TABLET PO SCH ×4 (04:56→23:07)
[2023-05-19] MEDS: oxyCODONE IMMEDIATE RELEASE 5 MG TABLET PO PRN ×2 (04:59→16:23)
[2023-05-19 05:07] LABS: ALBUMIN 2.3 GM/DL (3.2-4.5); BILIRUBIN,TOTAL 0.3 MG/DL (0.1-1.0); CALCIUM 7.4 MG/DL (8.5-10.1); CREATININE SERUM 0.74 MG/DL (0.60-1.30); MAGNESIUM 1.9 MG/DL (1.6-2.4); POTASSIUM 4.1 MMOL/L (3.6-5.0); TOTAL PROTEIN 4.2 GM/DL (6.4-8.2)
[2023-05-19 07:41] VITALS: BP 117/60
[2023-05-19] MEDS: DOCUSATE SODIUM 100 MG CAPSULE PO SCH ×2 (08:20→19:43)
[2023-05-19] MEDS: APIXABAN 2.5 MG TABLET PO SCH ×2 (08:20→19:43)
[2023-05-19] MEDS: TAMSULOSIN 0.4 MG (FLOMAX) CAP PO SCH ×2 (08:20→19:43)
[2023-05-19] MEDS: SENNOSIDES 8.6 MG TABLET PO SCH ×2 (08:20→19:44)
[2023-05-19] MEDS: meTOprolol TARTRATE (IR) 25 MG TABLET PO SCH ×2 (08:20→19:43)
[2023-05-19] MEDS: cefTRIAXone IV/IM 1,000 MG in NS (IVPB) 50 ML 50 ML IV SCH (08:21)
--- NOTE | 2023-05-19 09:46 | Physical Therapy Daily Note ---
PT Daily Note-Current Subjective pt reclined in bed upon arrival to room, agreeable to PT treatment. No reports of pain. Pain Section J - Health Conditions 1. Rarely or not at all 2. Occasionally 3. Frequently 4. Almost constantly 8. Unable to answer Pain Effect on Sleep: 1 Pain Interference with Therapy: 1 Pain Interference w/Day-to-Day: 1 Appearance Following session, pt reclined in bed with call light, phone and tray table within reach. All needs met at this time. Mental Status Patient Orientation: Person, Place, Situation Transfers SCALE: Activities may be completed with or without assistive devices. 4-Htaceueeyu-dsxlwgu completes the activity by him/herself with no assistance from a helper. 5-Set-up or Clean-up Assistance-helper sets up or cleans up; patient completes activity. [place] assists only prior to or following the activity. 4-Supervision or Touching Assistance-helper provides verbal cues and/or touching/steadying and/or contact guard assistance as patient completes activity. Assistance may be provided throughout the activity or intermittently. 3-Partial/Moderate Assistance-helper does LESS THAN HALF the effort. [place] lifts, holds or supports trunk or limbs, but provides less than half the effort. 2-Substantial/Maximal Assistance-helper does MORE THAN HALF the effort. [place] lifts or holds trunk or limbs and provides more than half the effort. 7-Vtqsxyeai-aksjbt does ALL the effort. Patient does none of the effort to complete the activity. Or, the assistance of 2 or more helpers is required for the patient to complete the activity. If activity was not attempted, code reason: 7-Patient Refused. 9-Not Applicable-not attempted and the patient did not perform the activity before the current illness, exacerbation or injury. 10-Not Attempted due to Environmental Limitations-(lack of equipment, weather restraints, etc.). 88-Not Attempted due to Medical Conditions or Safety Concerns. Sit to Lying (QC): 5 Lying to Sitting/Side of Bed(Q: 5 Sit to Stand (QC): 5 Weight Bearing Right Lower Extremity: Right Weight Bearing/Tolerated Left Lower Extremity: Left Full Weight Bearing Gait Training Distance: 250' Walk 150 ft (QC): 4 Gait Assistive Device: FWW Pt ambulates with forward flexion at hips, able to correct but with fatigue becomes more forward bent at the hips Exercises Seated Therapy Exercises: LE Protocol Seated Reps: 20 Assessment Current Status: Good Progress Pt has good mobility, fatigues quickly which increases his SOB and gait posture; but good balance PT Cargo Surveyor Goals Cargo Surveyor Goals PT Cargo Surveyor Goals Time Frame: Jun 02, 2023 Roll Left & Right (QC): 6 Sit to Lying (QC): 6 Lying-Sitting on Side/Bed(QC): 6 Sit to Stand (QC): 6 Chair/Mbj-qb-Zydfh Xfer(QC): 6 Toilet Transfer (QC): 6 Walk 10 feet (QC): 6 Walk 50ft with 2 Turns (QC): 6 Walk 150 ft (QC): 6 PT Plan Problem List Problem List: Activity Tolerance, Functional Strength, Safety, Balance, Gait, Transfer, Bed Mobility, ROM Treatment/Plan Treatment Plan: Continue Plan of Care Treatment Plan: Bed Mobility, Education, Functional Activity Sita, Functional Strength, Gait, Safety, Therapeutic Exercise, Transfers Treatment Duration: Jun 02, 2023 Frequency: 11 times per week Estimated Hrs Per Day: .5 hour per day Patient and/or Family Agrees t: Yes Time Time In: 855 Time Out: 918 DATE: May 19, 2023 Total Billed Treatment Time: 23 Total Billed Treatment 1 visit GT (15') Ex (8') SHAWN MONTENEGRO PT May 19, 2023 09:46
[2023-05-19 11:43] VITALS: BP 117/60
--- NOTE | 2023-05-19 14:37 | Progress Note ---
Subjective Date Seen by a Provider: May 19, 2023 Time Seen by a Provider: 08:00 Subjective/Events-last exam Patient much improved No pain Ambulating around We will discontinue catheter Urine culture no growth to date Focused Exam Lactate Level 05/18/23 05:07: Lactic Acid Level 0.83 Objective Exam Last Set of Vital Signs Vital Signs Date Time Temp Pulse Resp B/P (MAP) Pulse Ox O2 Delivery O2 Flow Rate FiO2 05/19/23 12:23 107 05/19/23 11:43 36.6 17 117/60 (79) 98 Room Air Capillary Refill : I&O Intake and Output 05/19/23 00:00 Intake Total 3485 ml Output Total 2750 ml Balance 735 ml Intake Oral 2035 ml IV Total 1450 ml Output Urine Total 2750 ml # Bowel Movements 7 General: Alert, Oriented X3, Cooperative, No Acute Distress Lungs: Clear to Auscultation, Normal Air Movement Heart: Regular Rate, Normal S1, Normal S2, No Murmurs Psych/Mental Status: Mental Status NL, Mood NL Results Lab Laboratory Tests 05/19/23 04:26: White Blood Count 14.2H, Red Blood Count 2.55L, Hemoglobin 8.7L, Hematocrit 26L, Mean Corpuscular Volume 101H, Mean Corpuscular Hemoglobin 34, Mean Corpuscular Hemoglobin Concent 34, Red Cell Distribution Width 12.4, Platelet Count 252, Mean Platelet Volume 9.7, Immature Granulocyte % (Auto) 1, Neutrophils (%) (Auto) 84H, Lymphocytes (%) (Auto) 6L, Monocytes (%) (Auto) 9, Eosinophils (%) (Auto) 1, Basophils (%) (Auto) 0, Neutrophils # (Auto) 11.9H, Lymphocytes # (Auto) 0.8L, Monocytes # (Auto) 1.3H, Eosinophils # (Auto) 0.1, Basophils # (A uto) 0.0, Immature Granulocyte # (Auto) 0.1, Sodium Level 131L, Potassium Level 4.1, Chloride Level 107, Carbon Dioxide Level 17L, Anion Gap 7, Blood Urea Nitrogen 14, Creatinine 0.74, Estimat Glomerular Filtration Rate 88, BUN/Creatinine Ratio 19, Glucose Level 106H, Calcium Level 7.4L, Corrected C alcium 8.8, Magnesium Level 1.9, Total Bilirubin 0.3, Aspartate Amino Transf (AST/SGOT) 48H, Alanine Aminotransferase (ALT/SGPT) 31, Alkaline Phosphatase 78, Total Protein 4.2L, Albumin 2.3L Microbiology 05/18/23 Urine Culture - Final, Complete NO GROWTH 05/17/23 MRSA Screen - Final, Complete MRSA not isolated Assessment/Plan Assessment/Plan Assess & Plan/Chief Complaint Assessment: Postop A-fib with RVR Urinary retention requiring Griffith catheter Plan: Oral anticoagulants DC Griffith catheter Clinical Quality Measures Admission Status Admission Dx Assessment: A-fib with RVR Postop right hip replacement Urinary retention requiring Griffith catheter Leukocytosis Plan: Transfer to fourth floor DALLAS HULL DO May 19, 2023 14:37
[2023-05-19] MEDS ORDERED: RT-ALBUTEROL SULF 2.5 MG/3 ML PRE-MIX VIAL IH PRN (14:45)
[2023-05-19 15:53] VITALS: BP 144/53
--- NOTE | 2023-05-19 18:46 | Cardiology Progress Note ---
Cardiology SOAP Progress Note Subjective: No significant cardiac complaints Objective: I&O/Vital Signs 05/19/23 05/19/23 05/19/23 05/19/23 07:00 07:41 09:00 11:43 Temp 36.6 36.6 Pulse 72 67 67 Resp 17 17 B/P (MAP) 117/60 (79) 117/60 (79) Pulse Ox 98 98 O2 Delivery Room Air Room Air Room Air 05/19/23 05/19/23 12:23 15:53 Temp 36.7 Pulse 107 98 Resp 18 B/P (MAP) 144/53 (83) Pulse Ox 97 O2 Delivery Room Air 05/19/23 00:00 Intake Total 2310 ml Output Total 750 ml Balance 1560 ml Constitutional: AAO x 3 Respiratory: lungs clear to auscultation; No stridor, No wheezing Cardiovascular: regular rate-rhythm; No diastolic murmur, No systolic murmur Gastrointestional: soft Extremities: No pedal edema Neurologic/Psychiatric: no motor/sensory deficits, alert, normal mood/affect, oriented x 3 Results/Procedures: Labs Laboratory Tests 05/19/23 04:26: White Blood Count 14.2H, Red Blood Count 2.55L, Hemoglobin 8.7L, Hematocrit 26L, Mean Corpuscular Volume 101H, Mean Corpuscular Hemoglobin 34, Mean Corpuscular Hemoglobin Concent 34, Red Cell Distribution Width 12.4, Platelet Count 252, Mean Platelet Volume 9.7, Immature Granulocyte % (Auto) 1, Neutrophils (%) (Auto) 84H, Lymphocytes (%) (Auto) 6L, Monocytes (%) (Auto) 9, Eosinophils (%) (Auto) 1, Basophils (%) (Auto) 0, Neutrophils # (Auto) 11.9H, Lymphocytes # (Auto) 0.8L, Monocytes # (Auto) 1.3H, Eosinophils # (Auto) 0.1, Basophils # (Auto) 0.0, Immature Granulocyte # (Auto) 0.1, Sodium Level 131L, Potassium Level 4.1, Chloride Level 107, Carbon Dioxide Level 17L, Anion Gap 7, Blood Urea Nitrogen 14, Creatinine 0.74, Estimat Glomerular Filtration Rate 88, BUN/Creat inine Ratio 19, Glucose Level 106H, Calcium Level 7.4L, Corrected Calcium 8.8, Magnesium Level 1.9, Total Bilirubin 0.3, Aspartate Amino Transf (AST/SGOT) 48H, Alanine Aminotransferase (ALT/SGPT) 31, Alkaline Phosphatase 78, Total Protein 4.2L, Albumin 2.3L Microbiology 05/18/23 Urine Culture - Final, Complete NO GROWTH 05/17/23 MRSA Screen - Final, Complete MRSA not isolated A/P: Assessment/Dx: Paroxysmal atrial fibrillation Paroxysmal atrial tachycardia Palpitation Hip replacement surgery Plan: Paroxysmal atrial fibrillation, currently in sinus rhythm with frequent APCs and PAT's He was started on Cardizem 30 mg every [address] Hawkins. Continue current AV paula blocking agents. Continue Eliquis. Palpitation, currently asymptomatic, continue to monitor Status post hip replacement surgery, currently recovering Leukocytosis, anemia Continue to monitor Hyponatremia, slightly better today. Continue to monitor History of TURP, BPH History of cataract surgery Focused Exam Lactate Level 05/18/23 05:07: Lactic Acid Level 0.83 Trudi FRANKLIN MD May 19, 2023 18:46
[2023-05-19 19:38] VITALS: BP 127/64
[2023-05-19] MEDS ORDERED: LIDOCAINE UROJET 2% GEL 10 ML PKG TOP ONE (21:45)
[2023-05-19 23:06] VITALS: BP 114/51
[2023-05-20 04:48] VITALS: BP 132/54
[2023-05-20] MEDS: dilTIAZem 30 MG TABLET PO SCH ×4 (04:50→23:21)
[2023-05-20] MEDS: BETHANECHOL 25 MG TABLET PO SCH ×4 (04:50→19:54)
[2023-05-20 05:21] LABS: BASOPHILS % (AUTO) 0 % (0-10); EOSINOPHILS # (AUTO) 0.2 10^3/uL (0.0-0.3); EOSINOPHILS % (AUTO) 2 % (0-10); HEMATOCRIT 28 % (40-54); HEMOGLOBIN 9.2 g/dL (13.3-17.7); LYMPHOCYTES # (AUTO) 0.8 10^3/uL (1.0-4.0); LYMPHOCYTES % (AUTO) 8 % (12-44); MEAN CORPUSCULAR HEMOGLOBIN 34 pg (25-34); MEAN CORPUSCULAR HGB CONC 33 g/dL (32-36); MEAN CORPUSCULAR VOLUME 102 fL (80-99); MONOCYTES # (AUTO) 0.9 10^3/uL (0.0-1.0); MONOCYTES % (AUTO) 9 % (0-12); NEUTROPHILS # (AUTO) 7.7 10^3/uL (1.8-7.8); NEUTROPHILS % (AUTO) 79 % (42-75); PLATELET COUNT 250 10^3/uL (130-400); WHITE BLOOD COUNT 9.7 10^3/uL (4.3-11.0)
[2023-05-20 05:42] LABS: ALBUMIN 2.1 GM/DL (3.2-4.5); BILIRUBIN,TOTAL 0.6 MG/DL (0.1-1.0); CALCIUM 7.7 MG/DL (8.5-10.1); CREATININE SERUM 0.75 MG/DL (0.60-1.30); MAGNESIUM 1.8 MG/DL (1.6-2.4); POTASSIUM 4.1 MMOL/L (3.6-5.0); TOTAL PROTEIN 4.4 GM/DL (6.4-8.2)
[2023-05-20 07:34] VITALS: BP 127/61
[2023-05-20] MEDS: SENNOSIDES 8.6 MG TABLET PO SCH ×2 (08:18→19:55)
[2023-05-20] MEDS: FOLIC ACID 1 MG TAB PO SCH (08:18)
[2023-05-20] MEDS: meTOprolol TARTRATE (IR) 25 MG TABLET PO SCH ×2 (08:18→19:54)
[2023-05-20] MEDS: TAMSULOSIN 0.4 MG (FLOMAX) CAP PO SCH ×2 (08:18→19:54)
[2023-05-20] MEDS: DOCUSATE SODIUM 100 MG CAPSULE PO SCH ×2 (08:18→19:54)
[2023-05-20] MEDS: APIXABAN 2.5 MG TABLET PO SCH ×2 (08:18→19:54)
[2023-05-20] MEDS: UMECLIDINIUM/VILANTEROL 62.5/25 MCG 7 DOSES (ANORO) IH SCH ×2 (08:21→09:02)
[2023-05-20] MEDS ORDERED: NON-FORMULARY MEDICATION 1 EA EA (Lutein 40 MG) PO SCH (09:00)
[2023-05-20] MEDS: oxyCODONE IMMEDIATE RELEASE 5 MG TABLET PO PRN ×2 (09:07→15:44)
[2023-05-20 11:23] VITALS: BP 142/66
--- NOTE | 2023-05-20 11:32 | Progress Note ---
Subjective Date Seen by a Provider: May 20, 2023 Time Seen by a Provider: 11:30 Subjective/Events-last exam Improved Crowe cath placed again due to continued retention Will DC home with crowe and tomorrow will arrange Urology f/u and provide leg bag Focused Exam Lactate Level 05/18/23 05:07: Lactic Acid Level 0.83 Objective Exam Last Set of Vital Signs Vital Signs Date Time Temp Pulse Resp B/P (MAP) Pulse Ox O2 Delivery O2 Flow Rate FiO2 05/20/23 11:23 36.3 87 15 142/66 (91) 98 Room Air Capillary Refill : I&O Intake and Output 05/20/23 00:00 Intake Total 1865 ml Output Total 1100 ml Balance 765 ml Intake Oral 1865 ml Output Urine Total 1100 ml Bladder Scan Volume Amount 950 ml # Bowel Movements 4 General: Alert, Oriented X3, Cooperative, No Acute Distress Results Lab Laboratory Tests 05/20/23 05:05: White Blood Count 9.7, Red Blood Count 2.72L, Hemoglobin 9.2L, Hematocrit 28L, Mean Corpuscular Volume 102H, Mean Corpuscular Hemoglobin 34, Mean Corpuscular Hemoglobin Concent 33, Red Cell Distribution Width 12.3, Platelet Count 250, Mean Platelet Volume 9.0, Immature Granulocyte % (Auto) 1, Neutrophils (%) (Auto) 79H, Lymphocytes (%) (Auto) 8L, Monocytes (%) (Auto) 9, Eosinophils (%) (Auto) 2, Basophils (%) (Auto) 0, Neutrophils # (Auto) 7.7, Lymphocytes # (Auto) 0.8L, Monocytes # (Auto) 0.9, Eosinophils # (Auto) 0.2, Basophils # (Auto) 0.0, Immature Granulocyte # (Auto) 0.1, Sodium Level 131L, Potassium Level 4.1, Chloride Level 104, Carbon Dioxide Level 21, Anion Gap 6, Blood Urea Nitrogen 13, Creatinine 0.75, Estimat Glomerular Filtration Rate 87, BUN/Creatinine Ratio 17, Glucose Level 92, Calcium Level 7.7L, Corrected Calcium 9.2, Magnesium Level 1.8, Total Bilirubin 0.6, Aspartate Amino Transf (AST/SGOT) 136H, Alanine Aminotransferase (ALT/SGPT) 138H, Alkaline Phosphatase 129, Total Protein 4.4L, Albumin 2.1L Microbiology 05/18/23 Urine Culture - Final, Complete NO GROWTH 05/17/23 MRSA Screen - Final, Complete MRSA not isolated Assessment/Plan Assessment/Plan Assess & Plan/Chief Complaint Assessment: Postop A-fib with RVR Urinary retention requiring Crowe catheter Plan: Oral anticoagulants Maintain Crowe catheter Clinical Quality Measures Admission Status Admission Dx Assessment: A-fib with RVR Postop right hip replacement Urinary retention requiring Crowe catheter Leukocytosis Plan: Transfer to fourth floor DALLAS HULL DO May 20, 2023 11:32
--- NOTE | 2023-05-20 14:49 | Cardiology Progress Note ---
Cardiology SOAP Progress Note Subjective: No significant cardiac complaints. Objective: I&O/Vital Signs 05/20/23 05/20/23 05/20/23 05/20/23 04:48 07:00 07:34 09:00 Temp 36.7 36.3 Pulse 84 97 79 Resp 18 16 B/P (MAP) 132/54 (80) 127/61 (83) Pulse Ox 97 98 O2 Delivery Room Air Room Air Room Air 05/20/23 05/20/23 05/20/23 09:00 11:23 12:22 Temp 36.3 Pulse 87 65 Resp 15 B/P (MAP) 142/66 (91) Pulse Ox 98 O2 Delivery Room Air Room Air 05/20/23 00:00 Intake Total 1265 ml Output Total 500 ml Balance 765 ml Constitutional: AAO x 3 Respiratory: lungs clear to auscultation; No stridor, No wheezing Cardiovascular: regular rate-rhythm; No diastolic murmur, No systolic murmur Gastrointestional: soft Extremities: No pedal edema Neurologic/Psychiatric: no motor/sensory deficits, alert, normal mood/affect, oriented x 3 Results/Procedures: Labs Laboratory Tests 05/20/23 05:05: White Blood Count 9.7, Red Blood Count 2.72L, Hemoglobin 9.2L, Hematocrit 28L, Mean Corpuscular Volume 102H, Mean Corpuscular Hemoglobin 34, Mean Corpuscular Hemoglobin Concent 33, Red Cell Distribution Width 12.3, Platelet Count 250, Mean Platelet Volume 9.0, Immature Granulocyte % (Auto) 1, Neutrophils (%) (Auto) 79H, Lymphocytes (%) (Auto) 8L, Monocytes (%) (Auto) 9, Eosinophils (%) (Auto) 2, Basophils (%) (Auto) 0, Neutrophils # (Auto) 7.7, Lymphocytes # (Auto) 0.8L, Monocytes # (Auto) 0.9, Eosinophils # (Auto) 0.2, Basophils # (Auto) 0.0, Immature Granulocyte # (Auto) 0.1, Sodium Level 131L, Potassium Level 4.1, Chloride Level 104, Carbon Dioxide Level 21, Anion Gap 6, Blood Urea Nitrogen 13, Creatinine 0.75, Estimat Glomerular Filtration Rate 87, BUN/Creatinine Ratio 17, Glucose Level 92, Calcium Level 7.7L, Corrected Calcium 9.2, Magnesium Level 1.8, Total Bilirubin 0.6, Aspartate Amino Transf (AST/SGOT) 136H, Alanine Aminotransferase (ALT/SGPT) 138H, Alkaline Phosphatase 129, Total Protein 4.4L, Albumin 2.1L Microbiology 05/18/23 Urine Culture - Final, Complete NO GROWTH 05/17/23 MRSA Screen - Final, Complete MRSA not isolated A/P: Assessment/Dx: Paroxysmal atrial fibrillation Paroxysmal atrial tachycardia Palpitation Hip replacement surgery Plan: Paroxysmal atrial fibrillation, currently in sinus rhythm with frequent APCs and PAT's He was started on Cardizem 30 mg every [address] Hawkins. Continue current AV paula blocking agents. Continue Eliquis. Palpitation, currently asymptomatic, continue to monitor Status post hip replacement surgery, currently recovering -consider rehabilitation. Leukocytosis, anemia Continue to monitor Hyponatremia, slightly better today. Continue to monitor History of TURP, BPH History of cataract surgery Focused Exam Lactate Level 05/18/23 05:07: Lactic Acid Level 0.83 Trudi FRANKLIN MD May 20, 2023 14:49
[2023-05-20 15:22] VITALS: BP 149/70
[2023-05-20 19:33] VITALS: BP 126/70
[2023-05-20 23:19] VITALS: BP 144/66
[2023-05-21 05:00] VITALS: BP 153/55
[2023-05-21] MEDS: BETHANECHOL 25 MG TABLET PO SCH ×4 (05:04→20:47)
[2023-05-21] MEDS: dilTIAZem 30 MG TABLET PO SCH (05:04)
[2023-05-21 05:57] LABS: BASOPHILS % (AUTO) 0 % (0-10); EOSINOPHILS # (AUTO) 0.2 10^3/uL (0.0-0.3); EOSINOPHILS % (AUTO) 2 % (0-10); HEMATOCRIT 27 % (40-54); LYMPHOCYTES # (AUTO) 0.9 10^3/uL (1.0-4.0); LYMPHOCYTES % (AUTO) 11 % (12-44); MEAN CORPUSCULAR HEMOGLOBIN 34 pg (25-34); MEAN CORPUSCULAR HGB CONC 33 g/dL (32-36); MEAN CORPUSCULAR VOLUME 101 fL (80-99); MEAN PLATELET VOLUME 9.1 fL (9.0-12.2); MONOCYTES % (AUTO) 12 % (0-12); NEUTROPHILS # (AUTO) 5.9 10^3/uL (1.8-7.8); NEUTROPHILS % (AUTO) 74 % (42-75); PLATELET COUNT 267 10^3/uL (130-400)
[2023-05-21 06:21] LABS: ALBUMIN 2.3 GM/DL (3.2-4.5); BILIRUBIN,TOTAL 0.6 MG/DL (0.1-1.0); CALCIUM 7.8 MG/DL (8.5-10.1); CREATININE SERUM 0.9 MG/DL (0.60-1.30); MAGNESIUM 1.7 MG/DL (1.6-2.4); TOTAL PROTEIN 4.4 GM/DL (6.4-8.2)
[2023-05-21 07:35] VITALS: BP 115/62
[2023-05-21] MEDS: oxyCODONE IMMEDIATE RELEASE 5 MG TABLET PO PRN ×2 (07:41→20:52)
[2023-05-21] MEDS: TAMSULOSIN 0.4 MG (FLOMAX) CAP PO SCH ×2 (08:40→20:47)
[2023-05-21] MEDS: dilTIAZem ER 120 MG CAPSULE PO SCH (08:40)
[2023-05-21] MEDS: meTOprolol TARTRATE (IR) 25 MG TABLET PO SCH ×2 (08:40→20:47)
[2023-05-21] MEDS: APIXABAN 2.5 MG TABLET PO SCH ×2 (08:40→20:47)
[2023-05-21] MEDS: FOLIC ACID 1 MG TAB PO SCH (08:40)
[2023-05-21] MEDS: DOCUSATE SODIUM 100 MG CAPSULE PO SCH ×2 (08:41→20:47)
[2023-05-21] MEDS: SENNOSIDES 8.6 MG TABLET PO SCH ×2 (08:42→20:47)
[2023-05-21] MEDS: UMECLIDINIUM/VILANTEROL 62.5/25 MCG 7 DOSES (ANORO) IH SCH (09:30)
--- NOTE | 2023-05-21 09:44 | Cardiology Progress Note ---
Subjective Date Seen by Provider: May 21, 2023 Time Seen by Provider: 08:45 Subjective/Events-last exam Patient is sitting up at bedside, eating breakfast, denies any chest pain Objective-Cardiology Exam Last Set of Vital Signs Vital Signs 05/21/23 05/21/23 05/21/23 07:35 09:33 09:34 Temp 37.0 Pulse 94 Resp 18 B/P (MAP) 115/62 (79) Pulse Ox 98 O2 Delivery Room Air I&O Intake and Output 05/21/23 00:00 Intake Total 2610 ml Output Total 4550 ml Balance -1940 ml Intake Oral 2610 ml Output Urine Total 4150 ml Stool Total 400 ml General: Alert, Oriented X3, Cooperative, No Acute Distress Lungs: Clear to Auscultation, Normal Air Movement Heart: Regular Rate, Normal S1, Normal S2, No Murmurs Psych/Mental Status: Mental Status NL, Mood NL Results Lab Laboratory Tests 05/21/23 05:32 A/P-Cardiology Admission Diagnosis Paroxysmal atrial fibrillation Paroxysmal atrial tachycardia [place] Hip replacement surgery Assessment/Plan Paroxysmal atrial fibrillation, still borderline tachycardic, I will evaluate twelve-lead EKG Cardizem changed to long acting this morning. Maintained on low-dose beta-katiana and evaluate tolerance and response Patient has been maintained on Eliquis which will be continued 2D Echo May 18, 2023 showing concentric hypertrophy, EF 50-55%, LA mild to moderately dilated, mild to moderate MR, moderate AR, PA 55-60% Palpitation, currently asymptomatic, continue to monitor Status post hip replacement surgery, currently recovering Leukocytosis, anemia Continue to monitor Hyponatremia, Continue to monitor History of TURP, BPH History of cataract surgery Supervisory-Addendum Brief Supervisory Addendum Participated in pt care: history, MDM, physical Personally performed: exam, history, MDM Care discussed with: MELINDA Results interpretation: Verified all documentation Notes: Patient was seen and evaluated with Halley, examination performed, management plan was discussed, agree with the current scribed note, I made few changes to the note using Italic font Patient was seen at bedside sitting comfortably noted to be tachycardic I changed his Cardizem to Cardizem CD 120 mg daily and maintained on metoprolol 25 mg twice daily I will repeat twelve-lead EKG and evaluate the need to increase the dose Monitor heart rate and blood pressure HALLEY BEE PA-C May 21, 2023 09:44 KOREY FARIA MD May 21, 2023 09:52
--- NOTE | 2023-05-21 10:08 | Progress Note ---
Subjective Date Seen by a Provider: May 21, 2023 Time Seen by a Provider: 10:00 Subjective/Events-last exam Patient doing well A-fib is still not rate controlled so Dr. Hawkins did increase Cardizem Pain is controlled Ambulating around well Bowels are moving Objective Exam Last Set of Vital Signs Vital Signs Date Time Temp Pulse Resp B/P (MAP) Pulse Ox O2 Delivery O2 Flow Rate FiO2 05/21/23 09:34 Room Air 05/21/23 09:33 98 05/21/23 07:35 37.0 94 18 115/62 (79) Capillary Refill : I&O Intake and Output 05/21/23 00:00 Intake Total 2610 ml Output Total 4550 ml Balance -1940 ml Intake Oral 2610 ml Output Urine Total 4150 ml Stool Total 400 ml General: Alert, Oriented X3, Cooperative, No Acute Distress Lungs: Clear to Auscultation, Normal Air Movement Psych/Mental Status: Mental Status NL, Mood NL Results Lab Laboratory Tests 05/21/23 05:32: White Blood Count 8.0, Red Blood Count 2.68L, Hemoglobin 9.0L, Hematocrit 27L, Mean Corpuscular Volume 101H, Mean Corpuscular Hemoglobin 34, Mean Corpuscular Hemoglobin Concent 33, Red Cell Distribution Width 12.1, Platelet Count 267, Mean Platelet Volume 9.1, Immature Granulocyte % (Auto) 1, Neutrophils (%) (Auto) 74, Lymphocytes (%) (Auto) 11L, Monocytes (%) (Auto) 12, Eosinophils (%) (Auto) 2, Basophils (%) (Auto) 0, Neutrophils # (Auto) 5.9, Lymphocytes # (Auto) 0.9L, Monocytes # (Auto) 1.0, Eosinophils # (Auto) 0.2, Basophils # (Auto) 0.0, Immature Granulocyte # (Auto) 0.1, Sodium Level 132L, Potassium Level 4.0, Chloride Level 104, Carbon Dioxide Level 20L, Anion Gap 8, Blood Urea Nitrogen 12, Creatinine 0.90, Estimat Glomerular Filtration Rate 83, BUN/Creatinine Ratio 13, Glucose Level 94, Calcium Level 7.8L, Corrected Calcium 9.2, Magnesium Level 1.7, Total Bilirubin 0.6, Aspartate Amino Transf (AST/SGOT) 68H, Alanine Aminotransferase (ALT/SGPT) 104H, Alkaline Phosphatase 130, Total Protein 4.4L, Albumin 2.3L Microbiology 05/18/23 Urine Culture - Final, Complete NO GROWTH 05/17/23 MRSA Screen - Final, Complete MRSA not isolated Assessment/Plan Assessment/Plan Assess & Plan/Chief Complaint Assessment: Postop A-fib with RVR Urinary retention requiring Griffith catheter Plan: Oral anticoagulants Maintain Griffith catheter at discharge Urology appointment will be obtained Clinical Quality Measures Admission Status Admission Dx Assessment: A-fib with RVR Postop right hip replacement Urinary retention requiring Griffith catheter Leukocytosis Plan: Transfer to fourth floor DALLAS HULL DO May 21, 2023 10:08
[2023-05-21 11:21] VITALS: BP 161/67
--- NOTE | 2023-05-21 11:41 | Physical Therapy Daily Note ---
PT Daily Note-Current Subjective Patient agrees to therapy. Pain Section J - Health Conditions 1. Rarely or not at all 2. Occasionally 3. Frequently 4. Almost constantly 8. Unable to answer Pain Effect on Sleep: 1 Pain Interference with Therapy: 1 Pain Interference w/Day-to-Day: 1 Transfers SCALE: Activities may be completed with or without assistive devices. 0-Ytndynraoc-oekxkbj completes the activity by him/herself with no assistance from a helper. 5-Set-up or Clean-up Assistance-helper sets up or cleans up; patient completes activity. [place] assists only prior to or following the activity. 4-Supervision or Touching Assistance-helper provides verbal cues and/or touching/steadying and/or contact guard assistance as patient completes activity. Assistance may be provided throughout the activity or intermittently. 3-Partial/Moderate Assistance-helper does LESS THAN HALF the effort. [place] lifts, holds or supports trunk or limbs, but provides less than half the effort. 2-Substantial/Maximal Assistance-helper does MORE THAN HALF the effort. [place] lifts or holds trunk or limbs and provides more than half the effort. 0-Qisgecqoe-ckwvjq does ALL the effort. Patient does none of the effort to complete the activity. Or, the assistance of 2 or more helpers is required for the patient to complete the activity. If activity was not attempted, code reason: 7-Patient Refused. 9-Not Applicable-not attempted and the patient did not perform the activity before the current illness, exacerbation or injury. 10-Not Attempted due to Environmental Limitations-(lack of equipment, weather restraints, etc.). 88-Not Attempted due to Medical Conditions or Safety Concerns. Lying to Sitting/Side of Bed(Q: 4 Sit to Stand (QC): 4 Chair/Ggx-nc-Xelzc Xfer(QC): 4 Toilet Transfer (QC): 4 Weight Bearing Right Lower Extremity: Right Weight Bearing/Tolerated Left Lower Extremity: Left Full Weight Bearing Gait Training Distance: 180' Walk 10 feet (QC): 4 Walk 50 ft with 2 Turns(QC): 4 Walk 150 ft (QC): 4 Gait Assistive Device: FWW severe flexed trunk and bilateral knees in stand and with ambulation Assessment Patient tolerated treatment well and is up in recliner with needs met. Patient continues to require SBA to CGA for mobility for safety concerns. Continue to increase activity as tolerated by patient. PT [employer] Goals Systems Developer Goals PT Prison Goals Time Frame: Jun 02, 2023 Roll Left & Right (QC): 6 Sit to Lying (QC): 6 Lying-Sitting on Side/Bed(QC): 6 Sit to Stand (QC): 6 Chair/Wgl-zf-Khynd Xfer(QC): 6 Toilet Transfer (QC): 6 Walk 10 feet (QC): 6 Walk 50ft with 2 Turns (QC): 6 Walk 150 ft (QC): 6 PT Plan Treatment/Plan Treatment Plan: Continue Plan of Care Treatment Plan: Bed Mobility, Education, Functional Activity Sita, Functional Strength, Gait, Safety, Therapeutic Exercise, Transfers Treatment Duration: Jun 02, 2023 Frequency: 11 times per week Estimated Hrs Per Day: .5 hour per day Patient and/or Family Agrees t: Yes Time Time In: 1056 Time Out: 1116 DATE: May 21, 2023 Total Billed Treatment Time: 20 Total Billed Treatment 1 visit FA 20 min DOC LAST PT May 21, 2023 11:41
--- NOTE | 2023-05-21 11:59 | Occupational Ther Daily Note ---
OT Current Status-Daily Note Subjective Slightly confused, unable to associate tasks from home to hospital room ie change of ostomy bag. Mental Status/Objective Patient Orientation: Person, Place, Situation Attachments: Colostomy/Ileostomy, Crowe Catheter ADL-Treatment Patent demonstrated difficulty managing ambulation w/ crowe bag, placement of FWW to sit on toilet and empty ostomy pouch, OT encouraged extreme hand hygiene following toileting skills, Velcro tab brief changed for pull up Therapy Code Descriptions/Definitions Functional [place] Measure: 0=Not Assessed/NA 4=Minimal Assistance 1=Total Assistance 5=Supervision or Setup 2=Maximal Assistance 6=Modified [place] 3=Moderate Assistance 7=Complete IndependenceSCALE: Activities may be completed with or without assistive devices. 3-Hnqhfvjxvi-urtuvwo completes the activity by him/herself with no assistance from a helper. 5-Set-up or Clean-up Assistance-helper sets up or cleans up; patient completes activity. [place] assists only prior to or following the activity. 4-Supervision or Touching Assistance-helper provides verbal cues and/or touching/steadying and/or contact guard assistance as patient completes acti vity. Assistance may be provided throughout the activity or intermittently. 3-Partial/Moderate Assistance-helper does LESS THAN HALF the effort. [place] lifts, holds or supports trunk or limbs, but provides less than half the effort. 2-Substantial/Maximal Assistance-helper does MORE THAN HALF the effort. [place] lifts or holds trunk or limbs and provides more than half the effort. 1-Phkubetla-jvwaxs does ALL the effort. Patient does none of the effort to complete the activity. Or, the assistance of 2 or more helpers is required for the patient to complete the activity. If activity was not attempted, code reason: 7-Patient Refused. 9-Not Applicable-not attempted and the patient did not perform the activity before the current illness, exacerbation or injury. 10-Not Attempted due to Environmental Limitations-(lack of equipment, weather restraints, etc.). 88-Not Attempted due to Medical Conditions or Safety Concerns. Eating (QC): 5 Oral Hygiene (QC): 5 Shower/Bathe Self (QC): 7 Upper Body Dressing (QC): 4 Lower Body Dressing (QC): 3 On/Off Footwear: 4 Toileting Hygiene (QC): 3 Toilet Transfer (QC): 3 Education OT Patient Education: Correct positioning, Energy conservation, Modified ADL techniques, Progress toward Goal/Update tx plan, Purpose of tx/functional activities, Reviewed precautions, Safety issues, Transfer techniques, Use of adapted equipment Teaching Recipient: Patient Teaching Methods: Demonstration Response to Teaching: Unable to Return Demonstration, Reinforcement Needed OT [employer] Attorney Goals M[employer] Acquis[employer] Attorney Goals Eating (QC): 6 Oral Hygiene (QC): 6 Toileting Hygiene (QC): 6 Shower/Bathe Self (QC): 6 Upper Body Dressing (QC): 6 Lower Body Dressing (QC): 6 On/Off Footwear (QC): 6 1=Demonstrate adherence to instructed precautions during ADL tasks. 2=Patient will verbalize/demonstrate understanding of assistive devices/modifications for ADL. 3=Patient will improve strength/tolerance for activity to enable patient to perform ADL's. OT Education/Plan Problem List/Assessment Assessment: Decreased Activ Tolerance, Decreased Safety Aware, Impaired Cognition, Impaired Self-Care Skills Discharge Recommendations Plan/Recommendations: Continue POC Treatment Plan/Plan of Care Treatment,Training & Education: Yes Patient would benefit from OT for education, treatment and training to promote independence in ADL's, mobility, safety and/or upper extremity function for ADL's. Plan of Care: ADL Retraining, Functional Mobility, Group Exercise/Act as Ind, UE Funct Exercise/Act Treatment Duration: May 22, 2023 Frequency: 3 times per week (3-5 times per week) Estimated Hrs Per Day: .25 hour per day Agreement: Yes Rehab Potential: Guarded Time Start Time: 11:00 Stop Time: 11:15 DATE: May 21, 2023 Total Time Billed (hr/min): 15 Billed Treatment Time ADL 15 min DAVID BOYER OT May 21, 2023 11:59
[2023-05-21 16:35] VITALS: BP 147/77
[2023-05-21 19:59] VITALS: BP 134/63
[2023-05-21 23:07] VITALS: BP 146/64
[2023-05-22 03:41] VITALS: BP 134/73
[2023-05-22] MEDS: BETHANECHOL 25 MG TABLET PO SCH ×2 (05:04→11:28)
[2023-05-22 05:41] LABS: BASOPHILS % (AUTO) 1 % (0-10); EOSINOPHILS # (AUTO) 0.2 10^3/uL (0.0-0.3); EOSINOPHILS % (AUTO) 2 % (0-10); HEMATOCRIT 28 % (40-54); HEMOGLOBIN 9.1 g/dL (13.3-17.7); LYMPHOCYTES # (AUTO) 0.8 10^3/uL (1.0-4.0); LYMPHOCYTES % (AUTO) 11 % (12-44); MEAN CORPUSCULAR HEMOGLOBIN 34 pg (25-34); MEAN CORPUSCULAR HGB CONC 33 g/dL (32-36); MEAN CORPUSCULAR VOLUME 102 fL (80-99); MEAN PLATELET VOLUME 8.9 fL (9.0-12.2); MONOCYTES # (AUTO) 1.1 10^3/uL (0.0-1.0); MONOCYTES % (AUTO) 13 % (0-12); NEUTROPHILS # (AUTO) 5.7 10^3/uL (1.8-7.8); NEUTROPHILS % (AUTO) 72 % (42-75); PLATELET COUNT 256 10^3/uL (130-400); WHITE BLOOD COUNT 7.9 10^3/uL (4.3-11.0)
[2023-05-22 05:59] LABS: ALBUMIN 2.3 GM/DL (3.2-4.5); BILIRUBIN,TOTAL 0.6 MG/DL (0.1-1.0); CREATININE SERUM 0.8 MG/DL (0.60-1.30); MAGNESIUM 1.7 MG/DL (1.6-2.4); POTASSIUM 4.2 MMOL/L (3.6-5.0); TOTAL PROTEIN 4.5 GM/DL (6.4-8.2)
[2023-05-22 07:39] VITALS: BP 123/61
[2023-05-22] MEDS: UMECLIDINIUM/VILANTEROL 62.5/25 MCG 7 DOSES (ANORO) IH SCH (07:41)
[2023-05-22] MEDS: dilTIAZem ER 120 MG CAPSULE PO SCH (08:45)
[2023-05-22] MEDS: TAMSULOSIN 0.4 MG (FLOMAX) CAP PO SCH (08:45)
[2023-05-22] MEDS: APIXABAN 2.5 MG TABLET PO SCH (08:45)
[2023-05-22] MEDS: FOLIC ACID 1 MG TAB PO SCH (08:45)
--- NOTE | 2023-05-22 08:45 | Cardiology Progress Note ---
Subjective Date Seen by Provider: May 22, 2023 Time Seen by Provider: 08:44 Subjective/Events-last exam Patient was seen at bedside, laying down comfortably, no new complaint Objective-Cardiology Exam Last Set of Vital Signs Vital Signs 05/22/23 05/22/23 07:39 07:41 Temp 36.3 Pulse 88 Resp 18 B/P (MAP) 123/61 (81) Pulse Ox 96 O2 Delivery Room Air I&O Intake and Output 05/22/23 00:00 Intake Total 2300 ml Output Total 4930 ml Balance -2630 ml Intake Oral 2300 ml Output Urine Total 3830 ml Stool Total 1100 ml # Bowel Movements 1 General: Alert, Oriented X3, Cooperative, No Acute Distress Neck: Supple, No JVD Lungs: Clear to Auscultation, Normal Air Movement Heart: Regular Rate, Normal S1, Normal S2, No Murmurs Extremities: No Clubbing, No Cyanosis Skin: No Rashes, No Breakdown Neuro: Normal Speech Psych/Mental Status: Mental Status NL, Mood NL Results Lab Laboratory Tests 05/22/23 05:05 A/P-Cardiology Admission Diagnosis Paroxysmal atrial fibrillation Paroxysmal atrial tachycardia Palp[place] Hip replacement surgery Assessment/Plan Paroxysmal atrial fibrillation, still borderline tachycardic, I will evaluate twelve-lead EKG I increase metoprolol to 50 mg twice daily and continue on Cardizem CD 120 mg daily Okay for discharge and follow-up as an outpatient 2D Echo May 18, 2023 showing concentric hypertrophy, EF 50-55%, LA mild to moderately dilated, mild to moderate MR, moderate AR, PA 55-60% Palpitation, currently asymptomatic, continue to monitor Status post hip replacement surgery, currently recovering Hyponatremia, Continue to monitor History of TURP, BPH History of cataract surgery KOREY FARIA MD May 22, 2023 08:45
--- NOTE | 2023-05-22 08:46 | Cardiology Progress Note ---
Subjective Date Seen by Provider: May 22, 2023 Time Seen by Provider: 08:30 Subjective/Events-last exam Patient sitting up in bed, eating breakfast. Objective-Cardiology Exam Last Set of Vital Signs Vital Signs 05/22/23 05/22/23 07:39 07:41 Temp 36.3 Pulse 88 Resp 18 B/P (MAP) 123/61 (81) Pulse Ox 96 O2 Delivery Room Air I&O Intake and Output 05/22/23 00:00 Intake Total 2300 ml Output Total 4930 ml Balance -2630 ml Intake Oral 2300 ml Output Urine Total 3830 ml Stool Total 1100 ml # Bowel Movements 1 General: Alert, Oriented X3, Cooperative, No Acute Distress Lungs: Clear to Auscultation, Normal Air Movement Heart: Regular Rate, Normal S1, Normal S2, No Murmurs Psych/Mental Status: Mental Status NL, Mood NL Results Lab Laboratory Tests 05/22/23 05:05 A/P-Cardiology Admission Diagnosis Paroxysmal atrial fibrillation Paroxysmal atrial tachycardia [place] Hip replacement surgery Assessment/Plan Paroxysmal atrial fibrillation, EKG showing SR with PACs, PVCs, rate better controlled. Maintained on Cardizem CD 120mg, Lopressor 50mg BID, Eliquis 2D Echo May 18, 2023 showing concentric hypertrophy, EF 50-55%, LA mild to moderately dilated, mild to moderate MR, moderate AR, PA 55-60% Palpitation, currently asymptomatic, continue to monitor Status post hip replacement surgery, currently recovering Leukocytosis, anemia Continue to monitor Hyponatremia, Continue to monitor History of TURP, BPH History of cataract surgery DANIS BEE PA-C May 22, 2023 08:46
[2023-05-22] MEDS: DOCUSATE SODIUM 100 MG CAPSULE PO SCH (08:48)
[2023-05-22] MEDS: SENNOSIDES 8.6 MG TABLET PO SCH (08:48)
[2023-05-22] MEDS ORDERED: meTOprolol TARTRATE (IR) 50 MG TABLET PO SCH (09:00)
[2023-05-22] MEDS ORDERED: BETH25TA2 PO (10:12)
[2023-05-22] MEDS ORDERED: OXC5T PO (10:12)
[2023-05-22] MEDS ORDERED: DILT-27 PO (10:12)
[2023-05-22] MEDS ORDERED: TMSL.4C PO (10:12)
[2023-05-22] MEDS ORDERED: METO50TA15 PO (10:12)
[2023-05-22] MEDS ORDERED: SENN-234 PO (10:12)
--- NOTE | 2023-05-22 10:15 | Discharge Summary ---
Diagnosis/Chief Complaint Date of Admission May 17, 2023 at 17:56 Date of Discharge Discharge Date: May 22, 2023 Discharge Diagnosis AF RVR OAC Post hip replacement Urinary retention requiring indwelling catheter Reason Hospital Visit Chief complaint: A-fib with RVR with urinary retention postop HPI: This is an 87-year-old male with a history of atrial fibrillation status post cardioversion on 05/01/[address] Bueno who presented to this hospital following an uncomplicated right total hip replacement but had postop complications of atrial fibrillation with rapid ventricular response with urinary retention and overall frail status with decline. Cardiology has seen him. Oral anticoagulation maintained. Started on bladder meds so hopefully we can discontinue catheter. Discharge Summary Discharge Physical Examination Allergies: Coded Allergies: No Known Drug Allergies (Unverified , 05/17/23) Vitals & I&Os Vital Signs Date Time Temp Pulse Resp B/P (MAP) Pulse Ox O2 Delivery O2 Flow Rate FiO2 05/22/23 13:30 05/22/23 11:54 37.3 67 18 97 Room Air General Appearance: Alert, Oriented X3, Cooperative Respiratory: Clear to Auscultation Hospital Course Was the Problem List Reviewed?: Yes Uneventful course but lengthy when he was transferred to [facility] from [facility] following an uncomplicated hip replacement but required ICU and Cardiology consultation due to AF RVR requiring ICU. Pt did regain better heart rate control with med additions. Attempted to DC crowe but retention occurred so crowe was replaced and he was sent home on leg bag. Urology f/u arranged. Labs (last 24 hrs) Laboratory Tests 05/17/23 17:56: Lab Scanned Report Referred Lab Report 05/17/23 19:00: White Blood Count 21.9H, Red Blood Count 2.96L, Hemoglobin 10.2L, Hematocrit 30L , Mean Corpuscular Volume 102H, Mean Corpuscular Hemoglobin 35H, Mean Corpuscular Hemoglobin Concent 34, Red Cell Distribution Width 12.5, Platelet Count 260, Mean Platelet Volume 9.1, Immature Granulocyte % (Auto) 1, Neutrophils (%) (Auto) 95H, Lymphocytes (%) (Auto) 1L, Monocytes (%) (Auto) 3, Eosinophils (%) (Auto) 0, Basophils (%) (Auto) 0, Neutrophils # (Auto) 20.8H, Lymphocytes # (Auto) 0.3L, Monocytes # (Auto) 0.6, Eosinophils # (Auto) 0.0, Basophils # (Auto) 0.0, Immature Granulocyte # (Auto) 0.2H, Neutrophils % (Manual) 98, Monocytes % (Manual) 1, Band Neutrophils 1, Platelet Estimate ADEQUATE, Poikilocytosis SLIGHT, [place] Cells SLIGHT, Sodium Level 129L, Potassium Level 3.9, Chloride Level 102, Carbon Dioxide Level 20L, Anion Gap 7, Blood Urea Nitrogen 15, Creatinine 0.81, Estimat Glomerular Filtration Rate 85, BUN/Creatinine Ratio 19, Glucose Level 136H, Calcium Level 7.8L, Corrected Calcium 8.8, Total Bilirubin 0.5, Aspartate Amino Transf (AST/SGOT) 20, Alanine Aminotransferase (ALT/SGPT) 16, Alkaline Phosphatase 65, Troponin I 0.116H, B- Type Natriuretic Peptide 904.6H, Total Protein 5.2L, Albumin 2.7L 05/18/23 04:50: White Blood Count 16.1H, Red Blood Count 2.66L, Hemoglobin 9.0L, Hematocrit 27L, Mean Corpuscular Volume 101H, Mean Corpuscular Hemoglobin 34, Mean Corpuscular Hemoglobin Concent 34, Red Cell Distribution Width 12.3, Platelet Count 214, Vir[place] n Platelet Volume 9.2, Immature Granulocyte % (Auto) 1, Neutrophils (%) (Auto) 89H, Lymphocytes (%) (Auto) 3L, Monocytes (%) (Auto) 8, Eosinophils (%) (Auto) 0, Basophils (%) (Auto) 0, Neutrophils # (Auto) 14.3H, Lymphocytes # (Auto) 0.5L , Monocytes # (Auto) 1.2H, Eosinophils # (Auto) 0.0, Basophils # (Auto) 0.0, Immature Granulocyte # (Auto) 0.1, Sodium Level 133L, Potassium Level 3.9, Chloride Level 109H, Carbon Dioxide Level 16L, Anion Gap 8, Blood Urea Nitrogen 14, Creatinine 0.76, Estimat Glomerular Filtration Rate 87, BUN/Creatinine Ratio 18, Glucose Level 130H, Calcium Level 7.6L, Corrected Calcium 8.9, Total Bilirubin 0.5, Aspartate Amino Transf (AST/SGOT) 15, Alanine Aminotransferase (ALT/SGPT) 11, Alkaline Phosphatase 59, Total Protein 4.4L, Albumin 2.4L, Phosphorus Level 2.5, Magnesium Level 1.4L 05/18/23 05:07: Lactic Acid Level 0.83 05/18/23 05:15: Urine Color ORANGE, Urine Clarity CLEAR, Urine pH 5.0, Urine Specific [place] 1.020, Urine Protein 1+H, Urine Glucose (UA) TRACEH, Urine Ketones NEGATIVE, Urine Nitrite POSITIVEH, Urine Bilirubin NEGATIVE, Urine Urobilinogen 0.2, Urine Leukocyte Esterase TRACEH, Urine RBC (Auto) 1+H, Urine RBC 5-10H, Urine WBC 5- 10H, Urine Crystals NONE, Urine Bacteria FEWH, Urine Casts NONE, Urine Mucus NEGATIVE, Urine Culture Indicated YES 05/19/23 04:26: White Blood Count 14.2H, Red Blood Count 2.55L, Hemoglobin 8.7L, Hematocrit 26L, Mean Corpuscular Volume 101H, Mean Corpuscular Hemoglobin 34, Mean Corpuscular Hemoglobin Concent 34, Red Cell Distribution Width 12.4, Platelet Count 252, Mean Platelet Volume 9.7, Immature Granulocyte % (Auto) 1, Neutrophils (%) (Auto) 84H, Lymphocytes (%) (Auto) 6L, Monocytes (%) (Auto) 9, Eosinophils (%) (Auto) 1, Basophils (%) (Auto) 0, Neutrophils # (Auto) 11.9H, Lymphocytes # (Au to) 0.8L, Monocytes # (Auto) 1.3H, Eosinophils # (Auto) 0.1, Basophils # (Auto) 0.0, Immature Granulocyte # (Auto) 0.1, Sodium Level 131L, Potassium Level 4.1, Chloride Level 107, Carbon Dioxide Level 17L, Anion Gap 7, Blood Urea Nitrogen 14, Creatinine 0.74, Estimat Glomerular Filtration Rate 88, BUN/Creatinine Ratio 19, Glucose Level 106H, Calcium Level 7.4L, Corrected Calcium 8.8, Magnesium Level 1.9, Total Bilirubin 0.3, Aspartate Amino Transf (AST/SGOT) 48H, Alanine Aminotransferase (ALT/SGPT) 31, Alkaline Phosphatase 78, Total Protein 4.2L, Albumin 2.3L 05/20/23 05:05: White Blood Count 9.7, Red Blood Count 2.72L, Hemoglobin 9.2L, Hematocrit 28L, Mean Corpuscular Volume 102H, Mean Corpuscular Hemoglobin 34, Mean Corpuscular Hemoglobin Concent 33, Red Cell Distribution Width 12.3, Platelet Count 250, Mean Platelet Volume 9.0, Immature Granulocyte % (Auto) 1, Neutrophils (%) (Auto) 79H, Lymphocytes (%) (Auto) 8L, Monocytes (%) (Auto) 9, Eosinophils (%) (Auto) 2, Basophils (%) (Auto) 0, Neutrophils # (Auto) 7.7, Lymphocytes # (Auto) 0.8L, Monocytes # (Auto) 0.9, Eosinophils # (Auto) 0.2, Basophils # (Auto) 0.0, Immature Granulocyte # (Auto) 0.1, Sodium Level 131L, Potassium Level 4.1, Chloride Level 104, Carbon Dioxide Level 21, Anion Gap 6, Blood Urea Nitrogen 13, Creatinine 0.75, Estimat Glomerular Filtration Rate 87, BUN/Creatinine Ratio 17, Glucose Level 92, Calcium Level 7.7L, Corrected Calcium 9.2, Magnesium Level 1.8, Total Bilirubin 0.6, Aspartate Amino Transf (AST/SGOT) 136H, Alanine Aminotransferase (ALT/SGPT) 138H, Alkaline Phosphatase 129, Total Protein 4.4L, Albumin 2.1L 05/21/23 05:32: White Blood Count 8.0, Red Blood Count 2.68L, Hemoglobin 9.0L, Hematocrit 27L, Mean Corpuscular Volume 101H, Mean Corpuscular Hemoglobin 34, Mean Corpuscular Hemoglobin Concent 33, Red Cell Distribution Width 12.1, Platelet Count 267, Mean Platelet Volume 9.1, Immature Granulocyte % (Auto) 1, Neutrophils (%) (Auto) 74, Lymphocytes (%) (Auto) 11L, Monocytes (%) (Auto) 12, Eosinophils (%) (Auto) 2, Basophils (%) (Auto) 0, Neutrophils # (Auto) 5.9, Lymphocytes # (Auto) 0.9L, Monocytes # (Auto) 1.0, Eosinophils # (Auto) 0.2, Basophils # (Auto) 0.0, Immature Granulocyte # (Auto) 0.1, Sodium Level 132L, Potassium Level 4.0, Chloride Level 104, Carbon Dioxide Level 20L, Anion Gap 8, Blood Urea Nitrogen 12, Creatinine 0.90, Estimat Glomerular Filtration Rate 83, BUN/Creatinine Ratio 13, Glucose Level 94, Calcium Level 7.8L, Corrected Calcium 9.2, Magnesium Level 1.7, Total Bilirubin 0.6, Aspartate Amino Transf (AST/SGOT) 68H, Alanine Aminotransferase (ALT/SGPT) 104H, Alkaline Phosphatase 130, Total Protein 4.4L, Albumin 2.3L 05/22/23 05:05: White Blood Count 7.9, Red Blood Count 2.72L, Hemoglobin 9.1L, Hematocrit 28L, Mean Corpuscular Volume 102H, Mean Corpuscular Hemoglobin 34, Mean Corpuscular Hemoglobin Concent 33, Red Cell Distribution Width 12.2, Platelet Count 256, Mean Platelet Volume 8.9L, Immature Granulocyte % (Auto) 1, Neutrophils (%) (Auto) 72, Lymphocytes (%) (Auto) 11L, Monocytes (%) (Auto) 13H, Eosinophils (%) (Auto) 2, Basophils (%) (Auto) 1, Neutrophils # (Auto) 5.7, Lymphocytes # (Auto) 0.8L, Monocytes # (Auto) 1.1H, Eosinophils # (Auto) 0.2, Basophils # (Auto) 0.0, Immature Granulocyte # (Auto) 0.1, Sodium Level 133L, Potassium Level 4.2, Chloride Level 102, Carbon Dioxide Level 24, Anion Gap 7, Blood Urea Nitrogen 12, Creatinine 0.80, Estimat Glomerular Filtration Rate 86, BUN/Creatinine Ratio 15, Glucose Level 90, Calcium Level 8.0L, Corrected Calcium 9.4, Magnesium Level 1.7, Total Bilirubin 0.6, Aspartate Amino Transf (AST/SGOT) 40H, Alanine Aminotransferase (ALT/SGPT) 80H, Alkaline Phosphatase 143H, Total Protein 4.5L, Albumin 2.3L Microbiology 05/18/23 Urine Culture - Final, Complete NO GROWTH 05/17/23 MRSA Screen - Final, Complete MRSA not isolated Pending Labs Microbiology Date/Time Source Procedure Growth Status 05/18/23 05:15 Urine Clean Catch Urine Culture - Final NO GROWTH Complete 05/17/23 18:10 Nasal MRSA Screen - Final MRSA not isolated Complete Laboratory Tests 05/17/23 17:56: Lab Scanned Report Referred Lab Report 05/17/23 19:00: White Blood Count 21.9, Red Blood Count 2.96, Hemoglobin 10.2, Hematocrit 30, Mean Corpuscular Volume 102, Mean Corpuscular Hemoglobin 35, Mean Corpuscular Hemoglobin Concent 34, Red Cell Distribution Width 12.5, Platelet Count 260, Mean Platelet Volume 9.1, Immature Granulocyte % (Auto) 1, Neutrophils (%) (Auto) 95, Lymphocytes (%) (Auto) 1, Monocytes (%) (Auto) 3, Eosinophils (%) (Auto) 0, Basophils (%) (Auto) 0, Neutrophils # (Auto) 20.8, Lymphocytes # (Auto) 0.3, Monocytes # (Auto) 0.6, Eosinophils # (Auto) 0.0, Basophils # (Auto) 0.0, Immature Granulocyte # (Auto) 0.2, Neutrophils % (Manual) 98, Monocytes % (Manual) 1, Band Neutrophils 1, Platelet Estimate ADEQUATE, Poikilocytosis SLIGHT, [place] Cells SLIGHT, Sodium Level 129, Potassium Level 3.9, Chloride Level 102, Carbon Dioxide Level 20, Anion Gap 7, Blood Urea Nitrogen 15, Creatinine 0.81, Estimat Glomerular Filtration Rate 85, BUN/Creatinine Ratio 19, Glucose Level 136, Calcium Level 7.8, Corrected Calcium 8.8, Total Bilirubin 0.5, Aspartate Amino Transf (AST/SGOT) 20, Alanine Aminotransferase (ALT/SGPT) 16, Alkaline Phosphatase 65, Troponin I 0.116, B-Type Natriuretic Peptide 904.6, Total Protein 5.2, Albumin 2.7 05/18/23 04:50: White Blood Count 16.1, Red Blood Count 2.66, Hemoglobin 9.0, Hematocrit 27, Mean Corpuscular Volume 101, Mean Corpuscular Hemoglobin 34, Mean Corpuscular Hemoglobin Concent 34, Red Cell Distribution Width 12.3, Platelet Count 214, Mean Platelet Volume 9.2, Immature Granulocyte % (Auto) 1, Neutrophils (%) (Auto) 89, Lymphocytes (%) (Auto) 3, Monocytes (%) (Auto) 8, Eosinophils (%) (Auto) 0, Basophils (%) (Auto) 0, Neutrophils # (Auto) 14.3, Lymphocytes # (Auto) 0.5, Monocytes # (Auto) 1.2, Eosinophils # (Auto) 0.0, Basophils # (Auto) 0.0, Immature Granulocyte # (Auto) 0.1, Sodium Level 133, Potassium Level 3.9, Chloride Level 109, Carbon Dioxide Level 16, Anion Gap 8, Blood Urea Nitrogen 14, Creatinine 0.76, Estimat Glomerular Filtration Rate 87, BUN/Creatinine Ratio 18, Glucose Level 130, Calcium Level 7.6, Corrected Calcium 8.9, Total Bilirubin 0.5, Aspartate Amino Transf (AST/SGOT) 15, Alanine Aminotransferase (ALT/SGPT) 11, Alkaline Phosphatase 59, Total Protein 4.4, Albumin 2.4, Phosphorus Level 2.5, Magnesium Level 1.4 05/18/23 05:07: Lactic Acid Level 0.83 05/18/23 05:15: Urine Color ORANGE, Urine Clarity CLEAR, Urine pH 5.0, Urine Specific [place] 1.020, Urine Protein 1+, Urine Glucose (UA) TRACE, Urine Ketones NEGATIVE, Urine Nitrite POSITIVE, Urine Bilirubin NEGATIVE, Urine Urobilinogen 0.2, Urine Leukocyte Esterase TRACE, Urine RBC (Auto) 1+, Urine RBC 5-10, Urine WBC 5-10, Urine Crystals NONE, Urine Bacteria FEW, Urine Casts NONE, Urine Mucus NEGATIVE, Urine Culture Indicated YES 05/19/23 04:26: White Blood Count 14.2, Red Blood Count 2.55, Hemoglobin 8.7, Hematocrit 26, Mean Corpuscular Volume 101, Mean Corpuscular Hemoglobin 34, Mean Corpuscular Hemoglobin Concent 34, Red Cell Distribution Width 12.4, Platelet Count 252, Mean Platelet Volume 9.7, Immature Granulocyte % (Auto) 1, Neutrophils (%) (Auto) 84, Lymphocytes (%) (Auto) 6, Monocytes (%) (Auto) 9, Eosinophils (%) (Auto) 1, Basophils (%) (Auto) 0, Neutrophils # (Auto) 11.9, Lymphocytes # (Auto) 0.8, Monocytes # (Auto) 1.3, Eosinophils # (Auto) 0.1, Basophils # (Auto) 0.0, Immature Granulocyte # (Auto) 0.1, Sodium Level 131, Potassium Level 4.1, Chloride Level 107, Carbon Dioxide Level 17, Anion Gap 7, Blood Urea Nitrogen 14, Creatinine 0.74, Estimat Glomerular Filtration Rate 88, BUN/Creatinine Ratio 19, Glucose Level 106, Calcium Level 7.4, Corrected Calcium 8.8, Magnesium Level 1.9, Total Bilirubin 0.3, Aspartate Amino Transf (AST/SGOT) 48, Alanine Aminotransferase (ALT/SGPT) 31, Alkaline Phosphatase 78, Total Protein 4.2, Albumin 2.3 05/20/23 05:05: White Blood Count 9.7, Red Blood Count 2.72, Hemoglobin 9.2, Hematocrit 28, Mean Corpuscular Volume 102, Mean Corpuscular Hemoglobin 34, Mean Corpuscular Hemoglobin Concent 33, Red Cell Distribution Width 12.3, Platelet Count 250, Mean Platelet Volume 9.0, Immature Granulocyte % (Auto) 1, Neutrophils (%) (Auto) 79, Lymphocytes (%) (Auto) 8, Monocytes (%) (Auto) 9, Eosinophils (%) (Auto) 2, Basophils (%) (Auto) 0, Neutrophils # (Auto) 7.7, Lymphocytes # (Auto) 0.8, Monocytes # (Auto) 0.9, Eosinophils # (Auto) 0.2, Basophils # (Auto) 0.0, Immature Granulocyte # (Auto) 0.1, Sodium Level 131, Potassium Level 4.1, Chloride Level 104, Carbon Dioxide Level 21, Anion Gap 6, Blood Urea Nitrogen 13, Creatinine 0.75, Estimat Glomerular Filtration Rate 87, BUN/Creatinine Ratio 17, Glucose Level 92, Calcium Level 7.7, Corrected Calcium 9.2, Magnesium Level 1.8, Total Bilirubin 0.6, Aspartate Amino Transf (AST/SGOT) 136, Alanine Aminotransferase (ALT/SGPT) 138, Alkaline Phosphatase 129, Total Protein 4.4, Albumin 2.1 05/21/23 05:32: White Blood Count 8.0, Red Blood Count 2.68, Hemoglobin 9.0, Hematocrit 27, Mean Corpuscular Volume 101, Mean Corpuscular Hemoglobin 34, Mean Corpuscular Hemoglobin Concent 33, Red Cell Distribution Width 12.1, Platelet Count 267, Mean Platelet Volume 9.1, Immature Granulocyte % (Auto) 1, Neutrophils (%) (Auto) 74, Lymphocytes (%) (Auto) 11, Monocytes (%) (Auto) 12, Eosinophils (%) (Auto) 2, Basophils (%) (Auto) 0, Neutrophils # (Auto) 5.9, Lymphocytes # (Auto) 0.9, Monocytes # (Auto) 1.0, Eosinophils # (Auto) 0.2, Basophils # (Auto) 0.0, Immature Granulocyte # (Auto) 0.1, Sodium Level 132, Potassium Level 4.0, Chloride Level 104, Carbon Dioxide Level 20, Anion Gap 8, Blood Urea Nitrogen 12, Creatinine 0.90, Estimat Glomerular Filtration Rate 83, BUN/Creatinine Ratio 13, Glucose Level 94, Calcium Level 7.8, Corrected Calcium 9.2, Magnesium Level 1.7, Total Bilirubin 0.6, Aspartate Amino Transf (AST/SGOT) 68, Alanine Aminotransferase (ALT/SGPT) 104, Alkaline Phosphatase 130, Total Protein 4.4, Albumin 2.3 05/22/23 05:05: White Blood Count 7.9, Red Blood Count 2.72, Hemoglobin 9.1, Hematocrit 28, Mean Corpuscular Volume 102, Mean Corpuscular Hemoglobin 34, Mean Corpuscular Hemoglobin Concent 33, Red Cell Distribution Width 12.2, Platelet Count 256, Mean Platelet Volume 8.9, Immature Granulocyte % (Auto) 1, Neutrophils (%) (Auto ) 72, Lymphocytes (%) (Auto) 11, Monocytes (%) (Auto) 13, Eosinophils (%) (Auto) 2, Basophils (%) (Auto) 1, Neutrophils # (Auto) 5.7, Lymphocytes # (Auto) 0.8, Monocytes # (Auto) 1.1, Eosinophils # (Auto) 0.2, Basophils # (Auto) 0.0, Immature Granulocyte # (Auto) 0.1, Sodium Level 133, Potassium Level 4.2, Chloride Level 102, Carbon Dioxide Level 24, Anion Gap 7, Blood Urea Nitrogen 12, Creatinine 0.80, Estimat Glomerular Filtration Rate 86, BUN/Creatinine Ratio 15, Glucose Level 90, Calcium Level 8.0, Corrected Calcium 9.4, Magnesium Level 1.7, Total Bilirubin 0.6, Aspartate Amino Transf (AST/SGOT) 40, Alanine Aminotransferase (ALT/SGPT) 80, Alkaline Phosphatase 143, Total Protein 4.5, Albumin 2.3 Discharge Home Medications: Active Scripts Active Senna (Sennosides) 8.6 Mg Tablet 8.6 Mg PO BID Oxyir Tablet (Oxycodone HCl) 5 Mg Tab 5 Mg PO Q4HR PRN Diltiazem 24Hr ER (Diltiazem HCl) 120 Mg Cap.er.24h 120 Mg PO DAILY Metoprolol Tartrate 50 Mg Tablet 50 Mg PO BID Bethanechol Chloride 25 Mg Tablet 25 Mg PO ACHS Flomax (Tamsulosin HCl) 0.4 Mg Cap 0.4 Mg PO BID Reported Acetaminophen 500 Mg Tablet 1,000 Mg PO Q8H PRN TAKES 2 (500MG) TABS Ventolin Hfa (Albuterol Sulfate) 90 Mcg Hfa.aer.ad 2 Puff PO Q8H PRN 1 PUFF = 90 MCG Lutein 40 Mg Capsule 40 Mg PO DAILY Folic Acid 1 Mg Tablet 1 Mg PO DAILY Anoro Ellipta 62.5-25 Mcg INH (Umeclidinium Brm/Vilanterol Tr) 62.5 Mcg-25 Mcg/Actuation Blst.w.dev 1 Puff PO DAILY Eliquis (Apixaban) 5 Mg Tablet 5 Mg PO BID Instructions to patient/family Please see electronic discharge instructions given to patient. DALLAS HULL DO May 22, 2023 10:15
[2023-05-22 11:54] VITALS: BP 138/65
--- NOTE | 2023-05-22 12:57 | Occ Therapy Progress Note ---
Therapy Progress Note Patient expected to DC 05/22/23, no treatment provided by OT DAVID BOYER OT May 22, 2023 12:57
== END 2023-05-22 13:30 | disposition home or self-care (01) | DRG 309 ==
LOC: ICU 17:56 → 4TH 05-18 13:40
PROVIDERS: ADMIT Internal Medicine; ATTEND Internal Medicine
DX: I48.0 Paroxysmal atrial fibrillation (principal); E87.1 Hypo-osmolality and hyponatremia; N40.1 Benign prostatic hyperplasia with lower urinary tract symptoms; R33.8 Other retention of urine; I49.1 Atrial premature depolarization; I47.19 Other supraventricular tachycardia; R00.2 Palpitations; J44.9 Chronic obstructive pulmonary disease, unspecified; I08.3 Combined rheumatic disorders of mitral, aortic and tricuspid valves; D64.9 Anemia, unspecified; R54 Age-related physical debility; Z87.891 Personal history of nicotine dependence; Z96.641 Presence of right artificial hip joint; Z79.01 Long term (current) use of anticoagulants; Z79.899 Other long term (current) drug therapy
CPT/HCPCS: 36415; 71045; 80053; 81000; 83605; 83735; 83880; 84100; 84484; 85007; 85025; 85027; 87081; 87088; 93005; 93306; 94640; 94760